=== PATIENT | male | born 1965 | race African-American/Black ===

== ENCOUNTER 2019-08-03 13:18 | Inpatient (IN) | payer BC ==
[2019-08-03] VITALS (23 sets, daily range): BP systolic 81–152; BP diastolic 40–94
[~2019-08-03] VITALS: Ht 185.4 cm; Wt 98.5 kg
[2019-08-03 13:41] LABS: HEMATOCRIT 36.8 % (42.0-52.0); MCH 27.8 pg (26.0-34.0); MCHC 32.7 g/dL (28.0-37.0); MCV 85.1 fL (80.0-100.0); PLATELET COUNT 240 thou/uL (150-400); RBC 4.32 mil/uL (4.50-6.00); WBC 17.6 thou/uL (4.0-11.0)
[2019-08-03 13:46] LABS: ANION GAP 14 mmol/L (7-16); BUN 130 mg/dL (7-18); CALCIUM 7.9 mg/dL (8.5-10.1); CHLORIDE 102 mmol/L (98-107); CO2 21 mmol/L (21-32); CREATININE 14.2 mg/dL (0.7-1.3); GLUCOSE 178 mg/dL (74-106); POTASSIUM 4.7 mmol/L (3.5-5.1); SODIUM 137 mmol/L (136-145)
[2019-08-03 13:56] LABS: ALBUMIN 3.2 g/dL (3.4-5.0); SGOT 22 U/L (15-37); SGPT 53 U/L (30-65); TOTAL BILIRUBIN 0.6 mg/dL (<0.1-1.0); TOTAL PROTEIN 6.9 g/dL (6.4-8.2); TROPONIN-I <0.06 ng/mL (<0.06)
[2019-08-03 14:02] LABS: ABSOLUTE NEUTROPHILS 11.6 thou/uL (1.4-8.2); METAMYELOCYTES 3 %; MYELOCYTES 1 %; PLATELET ESTIMATE NORMAL
[2019-08-03 14:03] LABS: ANISOCYTOSIS SLIGHT
[2019-08-03 14:33] LABS: HCO3 16.7 mmol/L (22.0-26.0); PCO2 55.4 mmHg (35.0-45.0); PO2 95.3 mmHg (80.0-100.0); pH 7.098 (7.360-7.450); sO2 94.3 % (92.0-98.0)
[2019-08-03] MEDS ORDERED: BUPROPION XL300 MG PO (15:41)
[2019-08-03] MEDS ORDERED: PROAIR HFA8.5 GM INH (15:41)
[2019-08-03] MEDS ORDERED: NORVASC10 MG PO (15:41)
[2019-08-03] MEDS ORDERED: ROCALTROL0.25 MCG PO (15:42)
[2019-08-03] MEDS ORDERED: LASIX 40 MG TAB40 MG PO (15:42)
[2019-08-03] MEDS ORDERED: CLONIDINE HCL0.2 M2 PO (15:42)
[2019-08-03] MEDS ORDERED: RENVELA800 MG PO (15:44)
[2019-08-03] MEDS ORDERED: RENAL-VITE TAB0.8 MG PO (15:44)
[2019-08-03] MEDS ORDERED: TOPROL XL50 MG PO (15:44)
[2019-08-03] MEDS ORDERED: TRAZODONE HCL100 MG PO (15:45)
--- NOTE | 2019-08-03 16:06 | NUR ---
PATIENT'S PROJECT DIRECTOR IS DR. MICHELLE LUCERO ([phone])
--- NOTE | 2019-08-03 20:00 | NUR ---
PT ADMITTED TO ICU AT 1630. INTUBATED AND SEDATED WITH PROPOFOL GTT CURRENTLY PT RECEIVING HEMODIALYSIS LUNGS COARSE BILAT. REMAINS IN SINUS RHYTHM. WILL CONT TO MONITOR
[2019-08-04] VITALS (19 sets, daily range): BP systolic 100–172; BP diastolic 52–92
[2019-08-04 05:12] LABS: BE(vivo) -1.8 mmol/L (-2 to +3); HCO3 22.2 mmol/L (22.0-26.0); PCO2 34.7 mmHg (35.0-45.0); pH 7.424 (7.360-7.450); sO2 96.8 % (92.0-98.0)
--- NOTE | 2019-08-04 06:00 | NUR ---
REMAINS INTUBATED AND SEDATED WITH PROPOFOL GTT AT 40 MCG AND VERSED GTT AT 2 MG. WHEN SEDATION LIGHTENED PT WILL OPEN EYES TO NAME AND ATTEMPT TO WEAKLY FLAG SIGNALER. LUNGS REMAIN COARSE BILAT. FIO2 TITRATED TO 50 %. 550 CC CLEAR ELSA URINE TONIGHT. PERITONEAL DIALYSIS CATH INTACT. PT ALSO HAS A LEFT UPPER ARM FISTULA IN PLACE. 2.5 LITERS TAKEN OFF WITH DIALYSIS LAST EVENING. AGUSTÍN TRAC IN PLACE CO 5.7 CI 2.4 SVV 11 WILL CONT TO MONITOR
[2019-08-04 06:01] LABS: HEMATOCRIT 26.7 % (42.0-52.0); MCH 28.5 pg (26.0-34.0); MCHC 34.5 g/dL (28.0-37.0); MCV 82.7 fL (80.0-100.0); RBC 3.23 mil/uL (4.50-6.00); RDW 14.9 % (10.5-14.5); WBC 8.3 thou/uL (4.0-11.0)
[2019-08-04 06:03] LABS: HEMOGLOBIN 9.2 gm/dL (14.0-18.0)
[2019-08-04 06:15] LABS: CALCIUM 7.1 mg/dL (8.5-10.1); POTASSIUM 4.4 mmol/L (3.5-5.1)
[2019-08-04 06:17] LABS: CREATININE 9.4 mg/dL (0.7-1.3)
[2019-08-04 07:37] LABS: ALBUMIN 2.4 g/dL (3.4-5.0); TOTAL BILIRUBIN 0.7 mg/dL (<0.1-1.0)
--- NOTE | 2019-08-04 09:06 | NUR ---
Assumed care at 0700. See reassessment for details. Sedation was titrated off at 0832. After approximately 15 minutes PT was able to open his eyes to verbal response and follow commands. Sedation was turned on at 0855. PT's systolic pressure became elevated (170s). High fall risk precautions in place. RN will continue to monitor.
--- NOTE | 2019-08-04 15:13 | NUR ---
Rn spoke with family via phone and gave them an update on PT condition. Family verbalized understanding. RN will continue to monitor.
[2019-08-04 23:07] LABS: HEP B SURFACE Ab(ANTI-HBS Non Reactive (()); HEPATITIS B SURFACE AG Negative (Negative)
[2019-08-05] VITALS (26 sets, daily range): BP systolic 114–205; BP diastolic 66–105
[2019-08-05 04:29] LABS: BE(vivo) -6.5 mmol/L (-2 to +3); HCO3 16.5 mmol/L (22.0-26.0); PO2 178.8 mmHg (80.0-100.0); pH 7.449 (7.360-7.450); sO2 99.3 % (92.0-98.0)
[2019-08-05 04:30] LABS: PCO2 24.4 mmHg (35.0-45.0)
[2019-08-05 05:34] LABS: BASOPHILS 0.3 % (0.0-2.0); EOSINOPHILS 1.6 % (0.0-3.0); HEMATOCRIT 24.3 % (42.0-52.0); HEMOGLOBIN 8.2 gm/dL (14.0-18.0); LYMPHOCYTES 6.9 % (24.0-44.0); MCH 28.5 pg (26.0-34.0); MCHC 33.9 g/dL (28.0-37.0); MONOCYTES 9.3 % (1.0-8.0); POLYS 81.9 % (36.0-66.0); RBC 2.89 mil/uL (4.50-6.00); RDW 14.8 % (10.5-14.5); WBC 4.9 thou/uL (4.0-11.0)
[2019-08-05 05:48] LABS: ALBUMIN 2.2 g/dL (3.4-5.0); CALCIUM 8.1 mg/dL (8.5-10.1); POTASSIUM 3.8 mmol/L (3.5-5.1); TOTAL BILIRUBIN 0.8 mg/dL (<0.1-1.0); TOTAL PROTEIN 5.1 g/dL (6.4-8.2)
[2019-08-05 05:49] LABS: CREATININE 10.9 mg/dL (0.7-1.3)
--- NOTE | 2019-08-05 05:55 | HC ---
[facility] [place] [address] CONSULTATION Name: DAVI MCCLURE Room #: 245-P ADM IN M.R.#: [id number] Admission: 08/03/19 Attend Phys: Kemal Stein MD Discharge: Date of : 61 Report #: [id number] THIS REPORT FOR: cc: SIMRAN - Family physician unknown SIMRAN - Family physician unknown Montrell Lin MD ~ CC: Montrell KHALIL unknown DATE OF SERVICE: 08/04/2019 REASON FOR CONSULTATION: Endstage renal disease. REASON FOR PRESENTATION: Shortness of breath. HISTORY OF PRESENT ILLNESS: I am not able to obtain the history. The patient is currently intubated. He was brought by EMS yesterday for shortness of breath and was found to be in pulmonary edema. He had been on hemodialysis; however, he was switched to peritoneal dialysis. There seems to be some issues with compliance. He goes to the [facility] unit, which I do not practice in. He was intubated and was admitted to the Intensive Care Unit after being found to have severe metabolic acidosis with very significant elevated blood pressure on presentation, acute pulmonary edema. Nephrology was asked to assist with the management of his dialysis. He has a functioning left-sided AV fistula. The patient tolerated dialysis without any problems yesterday. PAST MEDICAL HISTORY: 1. End-stage renal disease. 2. Left AV fistula. 3. PD catheter. 4. Currently maintained on peritoneal dialysis. However, he was on hemodialysis a few months ago. MEDICATIONS: 1. Lasix. 2. Toprol. 3. Amlodipine. REVIEW OF SYSTEMS: Unobtainable given the patient's current mental status. SOCIAL HISTORY: Unobtainable given the patient's current mental status and intubation status. FAMILY HISTORY: Unobtainable given the patient's current mental status and intubation status. [facility] [address] [place] [address] CONSULTATION Name: DAVI MCCLURE Room #: 245-P [facility] IN [facility].#: [id number] Admission: 08/03/19 Attend Phys: Kemal Stein MD Discharge: Date of : 61 Report #: [id number] ALLERGIES: None listed. PHYSICAL EXAMINATION: GENERAL: He is intubated. VITAL SIGNS: Blood pressure is 102/52. HEAD AND NECK: Central lines present. No evidence of jugular venous distention. CHEST: Crackles bilaterally. CARDIOVASCULAR: No rub detected. ABDOMEN: Soft. EXTREMITIES: Lower extremities, no edema. Upper extremities, there is a left-sided AV fistula. SKIN: There is a PD catheter in place in the abdominal area. LABORATORY DATA: Reviewed. Sodium is 136, potassium is 4.4, BUN is 66, creatinine is 9.4. IMAGING STUDIES: Chest x-ray reviewed, still with significant fluid overload. ASSESSMENT AND PLAN: 1. End-stage renal disease. 2. Noncompliance. 3. Pulmonary edema. 4. Arrangement will be made for the patient to have dialysis tomorrow. He already received a dialysis session yesterday. 5. He will need a very aggressive dialysis regimen with aggressive ultrafiltration to attain a better volume control. 6. Back off all of his blood pressure medication. 7. We will continue to follow. <ELECTRONICALLY SIGNED> By: Montrell Lin MD 08/05/19 0555 0914 1617 Montrell Lin MD /nt
--- NOTE | 2019-08-05 06:00 | NUR ---
REMAINS INTUBATED and sedated with PROPOFOL At 50 mcg and versed gtt 2 mg pt AROSES EASILY WITH SEDATion vacation looseleaf binder coverer to command. lungs coarse bilat 800 cc uo this shift. remAINS IN SINUS RHYTHM. WILL Have dialysis today progressing toward goals/ will cont to monitor
[2019-08-05 06:22] LABS: PLATELET COUNT 83 thou/uL (150-400)
[2019-08-05 06:23] LABS: ANISOCYTOSIS 1+
--- NOTE | 2019-08-05 07:30 | NUR ---
ASSUMED PATIENT AT 0700. FIO2 DECREASED TO 40% AND PEEP TO 5 CM ABG SHOWED PO2 IN THE 170'S. O2 SAT REMANINS 100%. MONITOR SHOWING SR WITH PAC'S AND PVC'S, AND INTERMITTENT SHORT BURST OF AFIB.
--- NOTE | 2019-08-05 08:00 | EKG ---
[facility] [place] [address] ELECTROCARDIOGRAM REPORT Name: GONZALESDAVI KEMP Room #: 245- ADM IN M.R.#: [id number] Admission: 08/03/19 Attend Phys: Kemal Stein MD Discharge: Date of : 61 Report #: [id number] THIS REPORT FOR: cc: FAM - Family physician unknown FAM - Family physician unknown Shamar Belle MD 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 : 1965 Requested By: Robert Ballesteros Order Number: [id number] MD: Shamar Belle Measurements Intervals [place] Rate: 97 P: 44 [place]: 208 QRS: -76 QRSD: 140 T: 79 QT: 376 QTc: 478 Interpretive Statements Sinus rhythm Prolonged [place] interval Left atrial enlargement Right bundle branch block Inferior myocardial infarction, age indeterminate Borderline prolonged QT interval No previous ECG available for comparison Electronically Signed On 08-05-2019 7:58:16 CDT by Shamar Belle [email or web address] <ELECTRONICALLY SIGNED> By: Shamar Belle MD, [facility] 08/05/19 0758 1328 1328 Shamar Belle MD, [facility] /EPI
--- NOTE | 2019-08-05 08:33 | NUR ---
If remains intubated, recommend start enteral nutrition of Nepro at 30ml/hr. Will continue to follow for final goal rate if initiated.
--- NOTE | 2019-08-05 09:53 | NUR ---
JUST SPOKE WITH HIS SIGNIFIANT OTHER, RADHA ROLLE AND UPDATED HER TO HIS STATUS AND PLAN OF CARE, REASSURANCE GIVEN.
--- NOTE | 2019-08-05 10:40 | NUR ---
SPOKE WITH DR BENNETT CONCERNING PATIENT'S MONITOR SHOWING SHORT RUNS OF AFIB WITH VENT RESPONSE UP TO 110 TO 120 AND PATIENT HAVING JERKING TREMORS OF UPPER BODY.
--- NOTE | 2019-08-05 15:04 | NUR ---
ASSUMED CARE OF PATIENT AT 14:31. PATIENT COMPLETED DIALYSIS WITH 4L REMOVED. REMAINS INTUBATED ON VENTILATOR. ET SECURED IN PLACE, TUBING CHANGED BY RT. HARP SECURED AND PATENT, OUTPUT CHARTED. PRIOR NURSE SPOKE WITH FAMILY THIS SHIFT. FALL PRECAUTIONS IN PLACE.
[2019-08-05 15:37] LABS: CALCIUM 8.6 mg/dL (8.5-10.1); POTASSIUM 3.6 mmol/L (3.5-5.1)
[2019-08-05 15:44] LABS: CREATININE 6.6 mg/dL (0.7-1.3)
--- NOTE | 2019-08-05 16:38 | NUR ---
INITIAL ASSESSMENT: SW reviewed chart and spoke with attending physician. Pt was admitted from home due to acute pulmonary eduma. Pt with hx of ESRD and does peritoneal dialysis at home. Pt is currently on the ventilator and in ICU. SW spoke with pt's s/o, Odessa, via phone. Introduced role of SW. Pt is normally alert/orientated x 4. Prior to admission, pt was independent with ADLs. No use of DME or post acute placement. Pt's PCP is Dr. Bruno at [facility]. Plan is for pt to discharge home when medically stable. Thearpy evals to be ordered when pt is able to participate. SW is following to assist a needed with discharge planning.
[2019-08-06] VITALS (7 sets, daily range): BP systolic 123–194; BP diastolic 71–100
[2019-08-06 04:13] LABS: BE(vivo) -1.5 mmol/L (-2 to +3); HCO3 22.9 mmol/L (22.0-26.0); PCO2 37.4 mmHg (35.0-45.0); PO2 131.7 mmHg (80.0-100.0); pH 7.405 (7.360-7.450); sO2 98.7 % (92.0-98.0)
[2019-08-06 05:34] LABS: CALCIUM 8.2 mg/dL (8.5-10.1); POTASSIUM 3.7 mmol/L (3.5-5.1)
[2019-08-06 05:52] LABS: CREATININE 8.5 mg/dL (0.7-1.3)
--- NOTE | 2019-08-06 06:39 | NUR ---
Received report from offgoing RN and assumed patient care. Patient remains on the ventilator with Propofol and Versed infusing for sedation. Sedation vacation for 10 minutes was done and patient did not open his eyes nor follow any commands. Patient's BP gilberto at times to SBP >200. No other acute events occured during this shift.
--- NOTE | 2019-08-06 08:54 | NUR ---
ASSESMENTS AND INTERVENTIONS DOCCUMENTED. DIALYSIS STARTED AROUND 0800. PATIENT HYPERTENSIVE, DR. SABRINA ALFARO. WAITING SENIOR SALES MANAGER BACK.
--- NOTE | 2019-08-06 16:35 | NUR ---
SW reviewed chart and spoke with attending physician. Pt remains on the ventilator at this time. Pt received dialysis today. Plan for extubation soon. Pt will need therapy evals when able to participate. KINGA is following to assist as needed with discharge planning.
[2019-08-07] VITALS (8 sets, daily range): BP systolic 92–149; BP diastolic 60–91
[2019-08-07 05:25] LABS: HEMATOCRIT 29.2 % (42.0-52.0); HEMOGLOBIN 9.6 gm/dL (14.0-18.0); MCH 27.8 pg (26.0-34.0); MCHC 32.8 g/dL (28.0-37.0); MCV 84.5 fL (80.0-100.0); RBC 3.46 mil/uL (4.50-6.00); RDW 14.9 % (10.5-14.5); WBC 15.5 thou/uL (4.0-11.0)
[2019-08-07 05:33] LABS: CALCIUM 8.8 mg/dL (8.5-10.1); CREATININE 7.9 mg/dL (0.7-1.3); POTASSIUM 3.6 mmol/L (3.5-5.1)
--- NOTE | 2019-08-07 06:25 | NUR ---
Received report from offgoing RN and assumed patient care. Patient remains on the ventilator with Propofol infusing for sedation. Patient followed commands during this shift. Patient stopped making urine and Dr. Lin was notified. Total output for shift was 15 mls. Additionally, patient had a low-grade fever and was treated with Tylenol twice. No other acute events occurred during this shift.
--- NOTE | 2019-08-07 08:26 | NUR ---
Starting day 4 npo status. If not able to exubate, recommend start enteral nutrition Nepro at 30ml/hr
--- NOTE | 2019-08-07 09:47 | NUR ---
ASSUMED CARE AT 0700, ASSESSMENT AND VITAL SIGNS COMPLETED PER ICU PROTOCOL. DIALYSIS IN PLACE. DR. ADKINS ROUNDED THIS AM.
--- NOTE | 2019-08-07 16:33 | NUR ---
SW reviewed chart and spoke with nursing and attending physician. Pt had dialysis earlier today. Pt remains on the ventilator. Plan to start cpap trials today and hope to extubate. Pt may benefit from therapy evals when able to participate. Pt lives at home with his s/o, Odessa. KINGA is following to assist as needed with discharge planning.
[2019-08-07 16:58] LABS: BE(vivo) 4.1 mmol/L (-2 to +3); HCO3 28.1 mmol/L (22.0-26.0); PO2 164.2 mmHg (80.0-100.0); pH 7.465 (7.360-7.450); sO2 99.2 % (92.0-98.0)
[2019-08-08] VITALS (39 sets, daily range): BP systolic 117–188; BP diastolic 70–101
[2019-08-08 05:42] LABS: HEMATOCRIT 29.9 % (42.0-52.0); HEMOGLOBIN 9.8 gm/dL (14.0-18.0); MCH 27.7 pg (26.0-34.0); MCHC 32.7 g/dL (28.0-37.0); MCV 84.7 fL (80.0-100.0); RBC 3.53 mil/uL (4.50-6.00); RDW 14.8 % (10.5-14.5); WBC 12.2 thou/uL (4.0-11.0)
[2019-08-08 06:13] LABS: CALCIUM 9.5 mg/dL (8.5-10.1); POTASSIUM 3.7 mmol/L (3.5-5.1)
[2019-08-08 06:17] LABS: CREATININE 6.8 mg/dL (0.7-1.3)
--- NOTE | 2019-08-08 06:41 | NUR ---
Received report from offgoing RN and assumed patient care. Patient remains on the ventilator with Propofol infusing for sedation. Patient had 5 hours of CPAP trial today and did well. Patient noted to still have copious malodorous oral secretions but no further edema is present. Patient VS remained stable, however, patient did have a low-grade fever throughout the night and was given Tylenol.
--- NOTE | 2019-08-08 09:28 | NUR ---
DR BULLOCK ROUNDED ON PT AT 0900, NO NEW ORDERS/NO PLANS FOR HD.
--- NOTE | 2019-08-08 12:07 | NUR ---
ON-GOING ASSESSMENT: CM REVIEWED CHART AND SPOKE WITH ATTENDING. PTS REMAINS ON THE VENTILATOR AND PLANS TO HOPEFULLY WEAN OFF TODAY. PT LIVES AT HOME WITH SIGNIFICANT OTHER AND WILL NEED TO BE EVALUATED BY PT/OT ONCE HE IS ABLE TO PARTICIPATE. CM WILL CONTINUE TO FOLLOW TO ASSIST NEEDED.
--- NOTE | 2019-08-08 12:10 | NUR ---
ON-GOING ASSESSMENT: CM REVIEWED CHART AND SPOKE WITH ATTENDING. PT REMAINS ON THE VENTILATOR WITH PLANS TO CONTINUE TRIALS WITH HOPE TO EXTUBATE SOON. ONCE PT IS ABLE HE MAY NEED TO BE EVALUATED BY PT/OT. PT IS BEING TESTED TODAY FOR COVID 19. CM WILL CONTINUE TO FOLLOW TO ASSIST NEEDED.
[2019-08-09] VITALS (18 sets, daily range): BP systolic 103–186; BP diastolic 73–101
--- NOTE | 2019-08-09 00:48 | NUR ---
ASSUMED CARE OF PATIENT AT 1900. ADMISSION HISTORY AND MED REC COMPLETE WITH INFORMATION PROVIDED BY DAUGHTER DANIEL VIA PHONE. DR HORTA, DR DUFFY CONSULTED. ORDERS RECIEVED FROM KO TO MOVE TO POD 1. DR ADKINS CONSULTED DUE TO CRITICAL LABS. ORDERS RECIEVED, INFORMATION PASSED ON TO RN ASSUMING CARE AFTER MOVE. DAUGHTER UPDATED ABOUT MOVE, WAS ABLE TO SPEAK WITH DR HORTA. COVID NEGATIVE RESULTS CALLED TO YVETTE LORENZO, NEUROSURGERY PHYSICIAN, AND CHARGE. PATIENT MOVED TO ROOM 238 AT 0030. REPORT GIVEN. POC GOALS ESTABLISHED.
[2019-08-09 05:32] LABS: HEMATOCRIT 28.6 % (42.0-52.0); HEMOGLOBIN 9.5 gm/dL (14.0-18.0); MCH 27.8 pg (26.0-34.0); MCHC 33.1 g/dL (28.0-37.0); MCV 83.9 fL (80.0-100.0); RBC 3.4 mil/uL (4.50-6.00); WBC 10.1 thou/uL (4.0-11.0)
[2019-08-09 05:39] LABS: POTASSIUM 4.1 mmol/L (3.5-5.1)
[2019-08-09 05:54] LABS: CREATININE 9.6 mg/dL (0.7-1.3)
--- NOTE | 2019-08-09 06:28 | NUR ---
ASSUMED CARE OF PATIENT AT 1900. 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 AT 2200 BECAME UNCONTROLLABLY AGITATED AND RESTLESS, KICKING LEGS OUT OF BED, ATTEMPTING TO PULL ET TUBE OUT. VERSED HUNG, 1 ADDITIONAL DOSE OF FENTYNAL GIVEN. PATIENT ABLE TO RELAX AND CALM DOWN. AWAKENS EASILY AND ABLE TO ANSWER YES/NO QUESTIONS. ONE RUN OF SVT, METOPROLOL GIVEN ORDERED. HEART RATE NOW WITHIN NORMAL LIMITS. INITIAL COVID TEST NEGATIVE, ROAD ROLLER ENGINEER, YVETTE LORENZO AND CHARGE NURSE NOTIFIED. REMAINS IN ENHANCED PRECAUTIONS, REPEAT COVID TEST SENT THIS AM. URINE OUTPUT STILL REMAINS INADEQUATE, DIALYSIS ORDERED FOR TODAY. NOT PROGRESSING TOWARDS GOALS.
--- NOTE | 2019-08-09 08:30 | NUR ---
ASSUMED CARE FROM NIGHT NURSE JOSE AT 0700. PATIENT SEDATED WITH FENTANYL AND VERSED BUT EASILY AROUSES AND FOLLOWS SIMPLE COMMANDS. MONITOR SHOWING NSR WITH 1ST DEGREE AV BLOCK AND BBB WITH OCC PAC AND PVC'S NOTED. BLOOD PRESSURE INCREASES WITH SUCTIONING. LARGE AMT OF THICK YELLOW DRAINAGE FROM LEFT NARE NOTED. TOLERATING TUBE FEEDING RESIDUAL IS LESS THAN 10 ML. FEEDING LINE FLUSHED WITH WARM WATER. ONLY 10 ML OF URINE IN RESPONSE TO LASIX. HEMODILYSIS IN PROGRESS.
--- NOTE | 2019-08-09 11:16 | NUR ---
Nutrition: Tube feeds started. RD rec goal rate nepro 55 mL/hr to meet needs.
--- NOTE | 2019-08-09 13:33 | NUR ---
DIALYSIS COMPLETED, SIGNIFICANT OTHER, RADHA CALLED AT 1220 AND UPDATED TO THE PATIENT'S STATUS AND POC. AWAITING COVID 19 RESULT, LAB CONTACTED.
--- NOTE | 2019-08-09 15:22 | NUR ---
SW reviewed chart and spoke with attending physician. Pt remains intubated. Pt had dialysis earlier today and has started tube feedings. Repeat COVID-19 test ordered today. No weekend discharge planned. Pt will need therapy evals ordered when able to participate. KINGA is following to assist as needed with discharge planning.
--- NOTE | 2019-08-09 16:30 | NUR ---
PATIENT NOTED TO HAVE ELEVATED RESIDUAL AT 1430 OF 70 ML, TUBE FEEDING REMAINS OFF. DUCOLAX SUPP GIVEN PATIENT HAS NOT HAD ANY STOOLS SINCE ARRIVAL TO ICU. AT 1600 PATIENT'S MONITOR SHOWING SVT, METOPOROL GIVEN AND BEDSIDE EKG DONE AND PATIENT CONVERTED BACK TO ST WITH PAC'S, 1ST DEGREE BLOCK AND BBB. PATIENT WAS ALERT, COPIOUS AMT OF ORAL AND ETT SECRETIONS SUCTIONED. DR BENNETT NOTIFIED OF RHYTHM, TUBE FEEDING RESIDUALS, AND PRN ORDER FOR FLUIDS FOR LOW BLOOD SUGAR. ORDERS RECEIVED. BEDSIDE EKG DONE.
--- NOTE | 2019-08-09 19:15 | NUR ---
PATIENT NOTED TO HAVE SECOND COVID 19 NEGATIVE RESULT, TEMP OF 101.[address] BENNETT NOTIFIED AT 1735, ORDERS RECEIVED. ID CONSULTED AND SPOKE WITH DR MIRELES AT 1745, ORDERS RECEIVED. TYLENOL GIVEN PER OG TUBE, ZOSYN AND VANCOMYCIN HUNG PER ORDER. SPUTUM AND BLOOD CULTURES DRAWN 08/07, RESULTS PENDING. WILL CONTINUE TO MONITOR. PATIENT SLOWLY PROGRESSING TOWARDS OUTCOME GOALS.
[2019-08-10] VITALS (24 sets, daily range): BP systolic 86–212; BP diastolic 54–116
[2019-08-10 00:39] LABS: CALCIUM 9.6 mg/dL (8.5-10.1); CREATININE 7.2 mg/dL (0.7-1.3); POTASSIUM 4.4 mmol/L (3.5-5.1)
--- NOTE | 2019-08-10 04:09 | NUR ---
PATIENT ON CONTINUOUS LATERAL ROTATION, TOLERATING WELL. ABLE TO MAINTAIN RASS GOAL OF -1. NO URINE OUTPUT THIS SHIFT. LABS NOTED. NO ACUTE EVENTS OVERNIGHT.
[2019-08-10 04:18] LABS: HEMATOCRIT 29.6 % (42.0-52.0); MCH 28.4 pg (26.0-34.0); MCHC 33.8 g/dL (28.0-37.0); MCV 84.1 fL (80.0-100.0); RBC 3.52 mil/uL (4.50-6.00); RDW 14.9 % (10.5-14.5); WBC 9.1 thou/uL (4.0-11.0)
[2019-08-10 08:10] LABS: DIRECT BILIRUBIN 1.1 mg/dL (<0.1-0.2); TOTAL BILIRUBIN 1.5 mg/dL (<0.1-1.0); TOTAL PROTEIN 7.2 g/dL (6.4-8.2)
[2019-08-10 10:17] LABS: CHOLESTEROL 141 mg/dL (<200); HDL CHOLESTEROL 11 mg/dL (>40); MAGNESIUM 2.5 mg/dL (1.8-2.4); PHOSPHORUS 6.5 mg/dL (2.5-4.9); TC:HDL 12.8 Ratio (Not establshd); TRIGLYCERIDE 418 mg/dL (<150); VLDL 84 mg/dL (<40)
--- NOTE | 2019-08-10 10:59 | EKG ---
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 : 1965 Requested By: Kemal Stein Order Number: [id number] MD: Jose Braxton Measurements Intervals [place] Rate: 105 P: 42 OR: 187 QRS: -65 QRSD: 136 T: 37 QT: 340 QTc: 450 Interpretive Statements Sinus tachycardia Atrial premature complex Right bundle branch block Probable inferior infarct, recent Baseline wander in lead(s) V2 Compared to ECG 08/03/2019 13:28:36 Atrial premature complex(es) now present Sinus rhythm no longer present First degree AV block no longer present Atrial abnormality no longer present Myocardial infarct finding still present Electronically Signed On 08-10-2019 10:57:52 CDT by Jose Braxton [email or web address] <ELECTRONICALLY SIGNED> By: Jose Braxton MD 08/10/19 1057 1634 1634 Jose Braxton MD /EPI
--- NOTE | 2019-08-10 19:34 | NUR ---
assumed care of pt at 0700, pt is a gcs of 11. pt does not seem to be in any pain. HD done today and pt tolerated it. pt has been afibrile. vss. pt resting with eyes closed currently.
[2019-08-11] VITALS (67 sets, daily range): BP systolic 82–152; BP diastolic 45–98
[2019-08-11 04:22] LABS: HEMATOCRIT 29.2 % (42.0-52.0); HEMOGLOBIN 9.5 gm/dL (14.0-18.0); MCH 27.6 pg (26.0-34.0); MCHC 32.5 g/dL (28.0-37.0); PLATELET COUNT 215 thou/uL (150-400); RBC 3.44 mil/uL (4.50-6.00); RDW 15.2 % (10.5-14.5); WBC 15.7 thou/uL (4.0-11.0)
[2019-08-11 04:37] LABS: ALBUMIN 1.9 g/dL (3.4-5.0); MAGNESIUM 2.7 mg/dL (1.8-2.4); POTASSIUM 5.8 mmol/L (3.5-5.1); TOTAL BILIRUBIN 2.7 mg/dL (<0.1-1.0); TOTAL PROTEIN 7.6 g/dL (6.4-8.2)
[2019-08-11 05:13] LABS: ABSOLUTE NEUTROPHILS 14.4 thou/uL (1.4-8.2); METAMYELOCYTES 1 %; TOXIC GRANULATION SLIGHT
--- NOTE | 2019-08-11 05:40 | HC ---
[facility] [place] [address] CONSULTATION Name: DAVI MCCLURE Room #: 245-P ADM IN M.R.#: [id number] Admission: 08/03/19 Attend Phys: Kemal Stein MD Discharge: Date of : 61 Report #: [id number] THIS REPORT FOR: cc: SIMRAN - Family physician unknown SIMRAN - Family physician unknown Zeus Raymond MD ~ CC: Montrell Stein [facility] unknown DATE OF SERVICE: 08/10/2019 INFECTIOUS DISEASE CONSULTATION ATTENDING PHYSICIAN: Dr. Stein. REASON FOR EVALUATION: Nosocomial fevers. The patient is critically ill, on mechanical ventilatory support, also noted to have longstanding dialysis. HISTORY OF PRESENT ILLNESS: Chart reviewed, patient examined. This is a 53-year-old gentleman with end-stage renal disease, on dialysis, had been doing peritoneal dialysis until recently, who was admitted through the Emergency Room after being brought in with severe shortness of breath, was urgently intubated. He has been on mechanical ventilatory support since that time. Over the course of the last 48 hours, he is noted to be febrile. Evaluation thus far has been somewhat unrevealing. He has been undergoing hemodialysis. Recent blood cultures from the are sterile thus far. Sputum culture showed upper respiratory tract marquez. He makes no urine. It was notable he has not had bowel movement since he has been here. He is intolerant of enteral feedings. It is notable he has had a coronavirus screening x 2 that were negative and empirically started on piperacillin and tazobactam given a dose of vancomycin. ALLERGIES: None. CURRENT MEDICATIONS: Include Zosyn, metoclopramide, labetalol, metoprolol as needed, insulin, p.r.n. analgesics and antiemetics. PAST MEDICAL HISTORY: Notable for hypertension, has got end-stage renal disease, on dialysis, until recently has been on peritoneal dialysis, at hospitalization has been on hemodialysis, does have a left upper extremity fistula. SOCIAL HISTORY: Unavailable. FAMILY HISTORY: Noncontributory. [facility] [address] [place] [address] CONSULTATION Name: ROSALINDSAULDAVI Room #: 245-P ADM IN M.R.#: [id number] Admission: 08/03/19 Attend Phys: Kemal Stein MD Discharge: Date of : 61 Report #: [id number] REVIEW OF SYSTEMS: Not obtainable. PHYSICAL EXAMINATION: GENERAL: Appears reasonably well nourished. He is sedated on the vent, appears somewhat chronically ill. VITAL SIGNS: Temperature overnight max 100.3, last 24 hours as high as 101.8. Pulse 90, respirations 14, blood pressure is 119/79 and saturations 98% on FiO2 ____. HEENT: He has got ET, OG in place. LUNGS: Few scattered coarse breath sounds, diminished. HEART: Regular. Borderline tachycardic. I do not appreciate murmur. ABDOMEN: Appears to be soft. There is some mild distention. I do not appreciate any peritoneal signs. GENITOURINARY AND RECTAL: Deferred. LABORATORY DATA: White count from this morning 9.1, H and H 10.0 and 29.6, platelets 162. Electrolytes: Sodium 135, potassium 4.4, chloride 96, bicarbonate is 29, anion gap of 10, BUN and creatinine 47 and 7.2. Glucose of 103. Coronavirus testing x 2 negative. Sputum culture, Gram stain showed polymicrobial appearance, moderate mixed respiratory tract marquez. Blood cultures are sterile thus far. ASSESSMENT AND PLAN: Nosocomial fevers in the setting of a patient that is critically ill. He is on mechanical ventilatory support for the last week. At this point, it is not evident there is a focus pyogenic infection at this point. Overall, the pulmonary status appears fairly stable. There is no evidence of septicemia at this point, although cannot exclude it. We will continue empiric antimicrobial therapy. It would be somewhat concerned about intra-abdominal related process. Check ultrasound of the abdomen. Repeat the liver function tests as well as amylase and lipase, also be a risk for sinus related infection as well. Consider noninfectious etiologies including drug, fevers, etc. We will follow. <ELECTRONICALLY SIGNED> By: Zeus Raymond MD 08/11/19 0540 0719 0738 Zeus Raymond MD /nt
[2019-08-11 06:34] LABS: INR 1.2; PROTIME 12.3 Seconds (9.3-11.4)
--- NOTE | 2019-08-11 08:29 | NUR ---
Assessment and interventions documented. Pt restless but redirectable. No complaints. No adverse events throughout the night. Pt stable hyponatremia resolving. Pt progressing toward goals.
--- NOTE | 2019-08-11 10:29 | NUR ---
Assumed care at 0700. Versed and fentanyl gtts were shut off for sedation vacation. PT rouses to pain but does not open his eyes or follow commands. Gag reflex intact. RN spoke with Dr. Ahumada as PT's BP was 84-86 systolic with a MAP<65. Provider ordered a 250cc bolus and levophed gtt. RN administered the bolus with improvement of BP and MAP. Levophed is ready as PRN blood pressure support. RN spoke with RT who initiated a CPAP trial at 0800. PT is tolerating trial well thus far but still not following commands. Fall precautions are in place. RN will continue to monitor.
--- NOTE | 2019-08-11 13:57 | NUR ---
RN noted PT's blood pressure was running 80s systolic with MAP <65. RN initiated levophed gtt that was ordered PRN at 1 mcg/min. RN titrated up to 3 mcg/min with improvment in pressures noted. Dr. Johnson rounded at bedside and was updated of PT condition. See chart for vital sign record. Fall precautions in place. RN will continue to monitor.
--- NOTE | 2019-08-11 14:26 | NUR ---
RN spoke with Dr. Raymond and updated him of covid 19 negative results. This has been the PT's third covid test and all 3 have been reported negative. Provider stated it was okay to d/c precautions at this time. RN will continue to monitor.
--- NOTE | 2019-08-11 15:38 | NUR ---
PT had a sustained run of sinus tachycardia (170s-180s). RN suctioned PT to induce a vagel manuever which was unsuccessful. Labetolol IVP 10mg was given with improvement. HR now 80s-90s. Dr. Ahumada notified per donaldorptos text. RN will continue to monitor.
[2019-08-11 16:35] LABS: ABSOLUTE NEUTROPHILS 14.9 thou/uL (1.4-8.2); BASOPHILS 0.6 % (0.0-2.0); EOSINOPHILS 0.4 % (0.0-3.0); HEMATOCRIT 28.4 % (42.0-52.0); HEMOGLOBIN 9.4 gm/dL (14.0-18.0); LYMPHOCYTES 4.2 % (24.0-44.0); MCH 27.8 pg (26.0-34.0); MCHC 33.1 g/dL (28.0-37.0); MCV 83.9 fL (80.0-100.0); MONOCYTES 10.5 % (1.0-8.0); PLATELET COUNT 254 thou/uL (150-400); POLYS 84.3 % (36.0-66.0); RBC 3.38 mil/uL (4.50-6.00); RDW 15.2 % (10.5-14.5); WBC 17.7 thou/uL (4.0-11.0)
[2019-08-11 16:57] LABS: ANION GAP 16 mmol/L (7-16); BUN 98 mg/dL (7-18); CALCIUM 10.3 mg/dL (8.5-10.1); CHLORIDE 96 mmol/L (98-107); CO2 24 mmol/L (21-32); GLUCOSE 111 mg/dL (74-106); POTASSIUM 5.1 mmol/L (3.5-5.1); SODIUM 136 mmol/L (136-145); TROPONIN-I <0.06 ng/mL (<0.06)
[2019-08-11 17:00] LABS: CREATININE 11.2 mg/dL (0.7-1.3)
[2019-08-12] VITALS (84 sets, daily range): BP systolic 81–151; BP diastolic 45–98
--- NOTE | 2019-08-12 03:00 | NUR ---
ASSUMED CARE OF PT
--- NOTE | 2019-08-12 06:00 | NUR ---
REMAINS INTUBATED AND SEDATED WITH FENTANYL 25 MCG ANBD VERSED 2 MG PER HR, SINUS RHYTHM. AFEBRILE HAD 2 LARGE BROWN LIQUID STOOL THIS SHIFT. LEVO GTT HAS REMAINS OFF ALL SHIFT. 5 CC UO THIS SHIFT. WILL CONT TO MONITOR. BATHED EARLIER.
[2019-08-12 06:11] LABS: BASOPHILS 0.6 % (0.0-2.0); HEMATOCRIT 26.3 % (42.0-52.0); HEMOGLOBIN 8.7 gm/dL (14.0-18.0); LYMPHOCYTES 3.6 % (24.0-44.0); MCH 27.7 pg (26.0-34.0); MCHC 33.2 g/dL (28.0-37.0); MCV 83.6 fL (80.0-100.0); MONOCYTES 9.2 % (1.0-8.0); PLATELET COUNT 252 thou/uL (150-400); POLYS 85.6 % (36.0-66.0); RBC 3.14 mil/uL (4.50-6.00); RDW 15.1 % (10.5-14.5); WBC 15.1 thou/uL (4.0-11.0)
[2019-08-12 06:42] LABS: ALBUMIN 1.8 g/dL (3.4-5.0); CALCIUM 9.8 mg/dL (8.5-10.1); MAGNESIUM 3.2 mg/dL (1.8-2.4); POTASSIUM 5.1 mmol/L (3.5-5.1); TOTAL BILIRUBIN 2.3 mg/dL (<0.1-1.0); TOTAL PROTEIN 7.4 g/dL (6.4-8.2)
[2019-08-12 06:46] LABS: CREATININE 12.6 mg/dL (0.7-1.3)
--- NOTE | 2019-08-12 09:22 | NUR ---
RN assumed care at 0700. PT is sedated on vent with fentanyl and versed gtts running. RN shut off gtts at 0915 for CPAP trial and sedation vacation. PT grimaces to suction and tactile stimulation but does not follow commands at this time. PT was noted to have a small liquid brown BM this AM. PT was cleaned and repositioned. High fall risk precautions in place. RN will continue to monitor.
[2019-08-12 10:40] LABS: BE(vivo) -6.8 mmol/L (-2 to +3); HCO3 19.2 mmol/L (22.0-26.0); PCO2 40.2 mmHg (35.0-45.0); pH 7.297 (7.360-7.450); sO2 98.3 % (92.0-98.0)
--- NOTE | 2019-08-12 11:02 | NUR ---
PT tolerated CPAP trial well. ABG had critical low pH. Result was called to Dr. Johnson who stated we would try and extubate tomorrow since PT is scheduled to undergo dialysis today. RN verbalized understanding. Will continue to monitor.
--- NOTE | 2019-08-12 14:27 | EKG ---
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 : 1965 Requested By: Charis Ahumada Order Number: [id number] MD: Jose Braxton Measurements Intervals [place] Rate: 92 P: 22 FL: 197 QRS: -60 QRSD: 136 T: 66 QT: 368 QTc: 456 Interpretive Statements Sinus rhythm Ventricular premature complex Borderline prolonged FL interval Right bundle branch block Inferior infarct, old Lateral leads are also involved Compared to ECG 08/09/2019 16:34:32 Atrial premature complex(es) no longer present Myocardial infarct finding still present Electronically Signed On 08-12-2019 14:25:11 CDT by Jose Braxton [email or web address] <ELECTRONICALLY SIGNED> By: Jose Braxton MD 08/12/19 1425 1606 1606 Jose Braxton MD /EPI
--- NOTE | 2019-08-12 15:27 | NUR ---
PT had a rhythm change at 1455. PT appeared to be in bigeminy that turned into SVT. Heart rate reached 180-190s. RN inititated the coughling relfex and gave Lopressor IVP 10mg. PT responded to the medication. HR slowed to the 80-90s however appeared to be in bigeminy until 1501. A stat EKG was ordered and Dr. Braxton notified. Dr. Braxton ordered a troponin, TSH, and 50 mg of Metoprolol XL via OGT daily. RN verbalized understanding. Will continue to monitor.
--- NOTE | 2019-08-12 16:57 | NUR ---
PT had a rhythm change at 1455. PT appeared to be in bigeminy that transitioned into SVT. Heart rate noted at 180-190s. RN initiated coughing reflex and gave 10mg of IVP Lopressor. Heart rate improved and went down to the 80-90s however PT still appeared to be in bigeminy until 1501. A stat EKG was ordered and Dr. Braxton was paged. Provider ordered a troponin, TSH, and metoprolol 50 BID via OGT. RN verbalized understanding. Will continue to monitor.
--- NOTE | 2019-08-12 18:21 | NUR ---
PT not progressing towards goals. His cardiac rhythm has changed showing more frequent PVC's, at times bigeminy, and had a run of SVT. PT's blood glucose was low at 1800 at 70. Dextrose given with last glucose at 113. PT did tolerate the CPAP trial well today. PT underwent dialysis today and they took off 1L of fluid. RN spoke with Dr. Ahumada at the end of shift to notify her that the PT went into SVT again and his heart rhythm has been irregular. RN told provider that Dr. Braxton has also been updated. She verbalized understanding. No new orders at this time. High fall risk precautions in place. RN will continue to monitor.
[2019-08-13] VITALS (76 sets, daily range): BP systolic 83–193; BP diastolic 50–119
[2019-08-13 05:23] LABS: CALCIUM 9.7 mg/dL (8.5-10.1); POTASSIUM 4.2 mmol/L (3.5-5.1)
[2019-08-13 06:07] LABS: CREATININE 8.7 mg/dL (0.7-1.3)
--- NOTE | 2019-08-13 06:12 | NUR ---
Received report from offgoing RN and assumed patient care. Patient remains on the ventilator with Fentanyl and Versed infusing for sedation. Patient did not follow any commands during or after the sedation vacation, but did eventually open his eyes. Patient is noted to have ST with very frequent PVC's resulting in bigeminy and trigeminy. Patient also was febrile with temperature greater than 101. Patient given Tylenol and ice packs and cool wash cloths placed around patient. Patient BP dropped to 80's systolic and Levophed was restarted to maintain a MAP >60. No other acute events occurred during this shift. The plan is for patient to be extubated today since he will not be getting hemodialysis.
--- NOTE | 2019-08-13 08:02 | EKG ---
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 : 1965 Requested By: Jose Braxton Order Number: [id number] MD: Shamar Belle Measurements Intervals [place] Rate: 88 P: 41 [place]: 185 QRS: -21 QRSD: 149 T: 84 QT: 392 QTc: 475 Interpretive Statements Sinus rhythm Right bundle branch block Inferior infarct, old T wave abnormality, consider lateral ischemia Compared to ECG 08/11/2019 16:06:57 Ventricular premature complex(es) no longer present Electronically Signed On 08-13-2019 8:00:34 CDT by Shamar Belle [email or web address] <ELECTRONICALLY SIGNED> By: Shamar Belle MD, [facility] 08/13/1900 15 151 Shamar Belle MD, [facility] /EPI
--- NOTE | 2019-08-13 08:08 | HC ---
[place] [address] CONSULTATION Name: DAVI MCCLURE Room #: 245-P ADM IN M.R.#: [id number] Admission: 08/03/19 Attend Phys: Kemal Stein MD Discharge: Date of : 61 Report #: [id number] THIS REPORT FOR: cc: SIMRAN - Family physician unknown FAM - Family physician unknown Jose Braxton MD ~ CC: Montrell KHALIL unknown DATE OF SERVICE: 08/12/2019 INDICATION: SVT. HISTORY OF PRESENT ILLNESS: This is a 53-year-old gentleman with a history of end-stage renal disease, hypertension, noncompliance, who was admitted more than a week ago with respiratory failure requiring intubation in the ER. It seems that he was on peritoneal dialysis at home and there is a question of noncompliance. Since he has been in the hospital, he has undergone hemodialysis with an improvement in his respiratory status. Yesterday, he had an episode of SVT that was sustained. It resolved with IV labetalol. He also has brief episodes of nonsustained VT. History is obtained from his medical records. ALLERGIES: None. MEDICATIONS: Please see MAR for full listing. SOCIAL HISTORY: Unknown. FAMILY HISTORY: Unknown. REVIEW OF SYSTEMS: Unobtainable. PHYSICAL EXAMINATION: VITAL SIGNS: Blood pressure is 120/60, heart rate is 90 beats per minute. GENERAL APPEARANCE: This is a well-developed, well-nourished male in no acute distress. HEENT: Normocephalic, atraumatic. NECK: Supple. LUNGS: Clear to auscultation. CARDIAC: Regular rate and rhythm, S1, S2 positive. ABDOMEN: Soft, nontender. EXTREMITIES: Trace edema, no cyanosis. ECG reveals sinus rhythm, right bundle branch block, left axis deviation, Q-waves inferiorly. [address] [place] [address] CONSULTATION Name: DAVI MCCLURE Room #: 245-P [facility] IN .R.#: [id number] Admission: 08/03/19 Attend Phys: Kemal Stein MD Discharge: Date of : 61 Report #: [id number] LABORATORY VALUES: White count 15.1, hemoglobin is 8.7, creatinine is 12.6. Troponin is negative from yesterday. ASSESSMENT AND PLAN: 1. Supraventricular tachycardia. He had been on pressure support, which has been weaned off. His blood pressure is on the low side. We would not start him on any standard medications. If he has a recurrence, would use IV metoprolol. We will need an echo. 2. Respiratory failure/fluid overload, continue with dialysis. Wean as per Pulmonary. 3. Hypertension, off pressors. Blood pressure is on the low side. 4. Nonsustained ventricular tachycardia, await echo findings. <ELECTRONICALLY SIGNED> By: Jose Braxton MD 08/13/19 0808 1311 1453 Jose Braxton MD /maurice
--- NOTE | 2019-08-13 09:33 | NUR ---
ASSESSMENTS AND INTERVENTIONS DOCCUMENTED. PATIENT TITRATED OFF OF LEVOPHED AND DOWN ON VERESED AND FENTANYL. PLANS TO CPAP TODAY. PATIENT FOLLOWING COMMANDS. DR. MORENO AT BEDSIDE. ORDERS FOR ECHO PLACED. DR. BENNETT ROUNDING ON PATIENT NO NEW ORDERS AT THIS TIME. ECHO BEING DONE AT BEDSIDE.
--- NOTE | 2019-08-13 10:44 | NUR ---
If not extubated, recommend resume trials of tube feed of nepro at 30ml/hr with new goal of 50ml/hr. TF has been on hold since 08/08 and pt had several days of npo status prior.
[2019-08-13 11:33] LABS: BE(vivo) -1.9 mmol/L (-2 to +3); HCO3 23.3 mmol/L (22.0-26.0); PCO2 41.7 mmHg (35.0-45.0); PO2 114.9 mmHg (80.0-100.0); pH 7.366 (7.360-7.450); sO2 98.1 % (92.0-98.0)
--- NOTE | 2019-08-13 13:15 | 2DMMODE ---
[facility] [place] [address] 2 D/M-MODE ECHOCARDIOGRAM Name: DAVI MCCLURE Room #: 245-P ADM IN M.R.#: [id number] Admission: 08/03/19 Attend Phys: Kemal Stein MD Discharge: Date of : 61 Report #: [id number] THIS REPORT FOR: cc: FAM - Family physician unknown FAM - Family physician unknown Shamar Belle MD [facility] ~ APPROVED REPORT Study performed: 08/13/2019 09:25:51 EXAM: Comprehensive 2D, Doppler, and color-flow Echocardiogram Patient Location: ICU Room #: [facility] Status: routine BSA: 2.19 HR: 96 bpm BP: 120/74 mmHg Other Information Study Quality: Adequate Indications Congestive Heart Failure Dyspnea SVT 2D Dimensions RVDd: 37.94 mm IVSd: 12.31 (7-11mm) LVDd: 51.32 mm PWd: 13.02 (7-11mm) LVDs: 41.79 (25-40mm) Volumes Left Atrial Volume (Systole) Single Plane 4CH: 43.66 mL Single Plane 2CH: 72.48 mL LA ESV Index: 28.00 mL/m2 Aortic Valve AoV Peak Steve.: 1.72 m/s AO Peak Gr.: 11.77 mmHg LVOT Max P.49 mmHg AO Mean Gr.: 5.71 mmHg AO V2 Mean: 1.10 m/s LVOT Max V: 0.93 m/s AO V2 VTI: 23.[address] [facility] [place] [place] [address] 2 D/M-MODE ECHOCARDIOGRAM Name: DAVI MCCLURE Room #: 245-P [facility] IN .R.#: [id number] Admission: 08/03/19 Attend Phys: Kemal Stein MD Discharge: Date of : 61 Report #: [id number] Mitral Valve MV Peak Gr.: 4.09 mmHg MV Mean Gr.: 1.83 mmHg E/A Ratio: 0.9 MV Decel. Time: 196.04 ms MV E Max Steve.: 0.72 m/s MV A Steve.: 0.82 m/s MV Max Steve.: 1.01 m/s MV Mean Steve.: 0.65 m/s MV VTI: 189.33 mm Pulmonary Valve PV Peak Steve.: 0.97 m/s PV Peak Gr.: 3.76 mmHg Tricuspid Valve RAP Estimate: 10.00 mmHg Left Ventricle The left ventricle is normal size. There is normal LV segmental wall motion. Mild concentric left ventricular hypertrophy. The left ventricular systolic function is normal. The left ventricular ejection fraction is within the normal range. LVEF is 55-60%. Mild diastolic dysfunction is present (impaired relaxation pattern). Right Ventricle The right ventricle is normal size. The right ventricular systolic function is normal. Atria The left atrium size is normal. The right atrium size is normal. Aortic Valve The aortic valve is normal in structure. No aortic regurgitation is present. There is no aortic valvular stenosis. Mitral Valve The mitral valve is normal in structure. Trace mitral regurgitation. No evidence of mitral valve stenosis. Tricuspid Valve The tricuspid valve is normal in structure. Trace tricuspid regurgitation. Unable to estimate pulmonary artery pressure. [facility] [address] [place] [address] 2 D/M-MODE ECHOCARDIOGRAM Name: DAVI MCCLURE Room #: 245-P [facility] IN .R.#: [id number] Admission: 08/03/19 Attend Phys: Kemal Stein MD Discharge: Date of : 61 Report #: [id number] Pulmonic Valve Pulmonic valve is not well visualized, normal by Doppler data. Trace pulmonic regurgitation. Great Vessels Aortic root is within upper limits of normal measuring 3.9 cm. Ascending aorta is not well visualized. IVC is dilated and collapses <50% with inspiration. Patient is mechanically ventilated. Pericardium There is no pericardial effusion. <Conclusion> The left ventricular systolic function is normal. There is normal LV segmental wall motion. LVEF is 55-60%. Mild diastolic dysfunction The aortic valve is normal in structure. No aortic regurgitation or stenosis. The mitral valve is normal in structure. Trace mitral regurgitation. Trace tricuspid regurgitation. Unable to estimate pulmonary artery pressure. There is no pericardial effusion. <ELECTRONICALLY SIGNED> By: Shamar Belle MD, [facility] 08/13/19 1313 131 12 Shamar Belle MD, FAC /INF
--- NOTE | 2019-08-13 16:44 | NUR ---
SW reviewed chart and spoke with attending physician. Pt remains in ICU. Cpap trials today. Pt's repeat COVId test is negative. Therapy ordered to evaluate pt when he is able to participate. SW is following to assist as needed [facility] discharge planning.
[2019-08-14] VITALS (60 sets, daily range): BP systolic 70–166; BP diastolic 44–119
--- NOTE | 2019-08-14 05:58 | NUR ---
Received report from offgoing RN and assumed patient care. Patient remains on the ventilator and is without any sedation. Patient is still very drowsy but is following all commands. Patient was tested to see if we could extubate this shift but RT felt he was not ready. Dr. Johnson notified and he said to reassess tomorrow. Patient remained afebrile during this shift and VS remained stable and no acute events occurred during this shift.
[2019-08-14 06:03] LABS: CALCIUM 10.2 mg/dL (8.5-10.1); CREATININE 11.8 mg/dL (0.7-1.3); POTASSIUM 4.3 mmol/L (3.5-5.1)
[2019-08-14 07:27] LABS: HEMATOCRIT 27.3 % (42.0-52.0); MCH 27.9 pg (26.0-34.0); MCHC 33.1 g/dL (28.0-37.0); MCV 84.1 fL (80.0-100.0); RBC 3.24 mil/uL (4.50-6.00); RDW 14.5 % (10.5-14.5); WBC 8.6 thou/uL (4.0-11.0)
--- NOTE | 2019-08-14 09:31 | NUR ---
RN ASSUMED CARE OF PATIENT AT 0800. PATIENT ON DILAYSIS AND ALERT. PATIENT LOOKING UNCOMFORTABLE AND NODDING YES TO BEING IN PAIN. PATIENT HYPERTENSIVE AND TACHYCARDIC. MEDICATION GIVEN AND PATIENT APPEARS MUCH MORE COMFORTABLE AT THIS TIME.
[2019-08-14 13:34] LABS: BE(vivo) -1.4 mmol/L (-2 to +3); HCO3 22.1 mmol/L (22.0-26.0); PCO2 32.9 mmHg (35.0-45.0); pH 7.445 (7.360-7.450); sO2 98.7 % (92.0-98.0)
--- NOTE | 2019-08-14 17:01 | NUR ---
KINGA reviewed chart and spoke with nursing and attending physician. Pt remains in ICU and intubated. Plans for CPAP trials and hopefully extubation today. Pt had dialysis earlier today. Therapy evals ordered to work with pt when he is able to participate. 5N to see if pt may be a candidate for inpt acute rehab after therapy evals have been completed. KINGA spoke with pt's, girlfriend, Odessa, via phone to provide update. KINGA is following to assist as needed with discharge planning.
[2019-08-15] VITALS (40 sets, daily range): BP systolic 89–172; BP diastolic 56–104
--- NOTE | 2019-08-15 03:35 | NUR ---
PATIENTS CARES WERE ASSUMED AT SHIFT CHANGE. PATIENT WAS ASSESSED AND MEDS WERE PASSED. ANOTHER IV WAS PLASED IN THE RIGHT FORARM. THIS WAS DONE BECAUSE THE IV ANTIBIOTIC IS NOT COMPATABLE WITH THE OTHER DRIPS. PATIENT WAS WASHED AND LINEN WAS CHANGED. HEART RATE HAS MUCH IMPROVED SINCE THE ORDER FOR THE AMIO GTT WAS STARTED. WILL CONTINUE TO MONITOR. THE BED IS IN A LOCKED POSITION.
--- NOTE | 2019-08-15 06:10 | NUR ---
PATIENT HAD A BED BATH.ONE SMALL STOOL WAS FOUND. CLEAN LINEN WAS PUT ON THE BED. CHIN DRAPED IN A TOWEL DUE TO HEAVY SECRETIONS. SUCTION WAS DONE INTERMITTINT.
--- NOTE | 2019-08-15 09:03 | EKG ---
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 : 1965 Requested By: Kemal Stein Order Number: [id number] MD: Shamar Belle Measurements Intervals [place] Rate: 105 P: 46 NM: 175 QRS: -96 QRSD: 136 T: 63 QT: 341 QTc: 451 Interpretive Statements Sinus tachycardia Multiple ventricular premature complexes Right bundle branch block Inferior infarct, age indeterminate Compared to ECG 08/12/2019 15:16:56 Ventricular premature complex(es) now present Electronically Signed On 08-15-2019 9:01:06 CDT by Shamar Belle [email or web address] <ELECTRONICALLY SIGNED> By: Shamar Belle MD, [facility] 08/15/19900 30 30 Shamar Belle MD, [facility] /EPI
--- NOTE | 2019-08-15 09:13 | EKG ---
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 : 1965 Requested By: Kemal Stein Order Number: [id number] MD: Shamar Belle Measurements Intervals [place] Rate: 130 P: [place]: QRS: 122 QRSD: 175 T: -50 QT: 377 QTc: 555 Interpretive Statements Sinus rhythm with paroxysmal wide-complex tachycardia, possibly ventricular tachycardia Right bundle branch block ST depression, consider ischemia, diffuse lds Compared to ECG 08/12/2019 15:16:56 No significant change was found Electronically Signed On 08-15-2019 9:11:32 CDT by Shamar Belle [email or web address] <ELECTRONICALLY SIGNED> By: Shamar Belle MD, [facility] 08/15/19 0911 39 39 Shamar Belle MD, FAC /EPI
--- NOTE | 2019-08-15 09:29 | EKG ---
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 : 1965 Requested By: Kemal Stein Order Number: [id number] MD: Shamar Belle Measurements Intervals [place] Rate: 125 P: 101 [place]: 194 QRS: 115 QRSD: 177 T: -47 QT: 355 QTc: 512 Interpretive Statements Sinus tachycardia with paroxysmal wide-complex tachycardia, probably ventricular tachycardia Right bundle branch block No previous ECGs available for comparison Electronically Signed On 08-15-2019 9:27:29 CDT by Shamar Belle [email or web address] <ELECTRONICALLY SIGNED> By: Shamar Belle MD, [facility] 08/15/19 0927 Shamar Belel MD, [facility] /EPI
[2019-08-15 09:31] LABS: HEMATOCRIT 30.1 % (42.0-52.0); HEMOGLOBIN 9.8 gm/dL (14.0-18.0); MCH 27.6 pg (26.0-34.0); MCHC 32.6 g/dL (28.0-37.0); MCV 84.5 fL (80.0-100.0); RBC 3.56 mil/uL (4.50-6.00); RDW 14.3 % (10.5-14.5); WBC 12.7 thou/uL (4.0-11.0)
[2019-08-15 09:47] LABS: CALCIUM 10.2 mg/dL (8.5-10.1); MAGNESIUM 3.1 mg/dL (1.8-2.4)
[2019-08-15 09:48] LABS: CREATININE 9.8 mg/dL (0.7-1.3)
--- NOTE | 2019-08-15 14:45 | NUR ---
KINGA reviewed chart and spoke with attending physician. Pt remains intubated and in ICU. Pt to have cardiac cath today. Will attempt with vent weaning/extubation tomorrow. Pt will need therapy evals when able to participate. KINGA discussed with 5N rehab assistant. KINGA is following to assist as needed with discharge planning.
--- NOTE | 2019-08-15 16:03 | CATHLAB ---
[facility] [place] [address] INVASIVE PROCEDURE REPORT Name: DAVI MCCLURE Room #: 245-P ADM IN M.R.#: [id number] Admission: 08/03/19 Attend Phys: Kemal Stein MD Discharge: Date of : 61 Report #: [id number] THIS REPORT FOR: cc: FAM - Family physician unknown FAM - Family physician unknown Jose Braxton MD ~ APPROVED REPORT Study performed: 08/15/2019 14:10:40 Patient Details Patient Status: In-Patient Room #: The patient is a 54 year-old male Event Personnel Jose Braxton Bilingual Receptionist, Jyane Gonzalez CVT Monitor, Shell Scott RTR Lidia Marte Wes final finisher Performed Art Access - R femoral artery* Left Heart Cath w/or w/o Coronaries [id number] [facility] Hemostasis with Manual pressure Indication Dyspnea, Ventricular tachycardia Risk Factors Hypercholesterolemia, HypertensionRenal Failure, Dialysis Procedure Narrative The patient was brought electivelyurgently to the Cardiac Catheterization Laboratory and was prepped and draped in a sterile manner. The Right Groin^ was infiltrated with 1% Lidocaine subcutaneous anesthesia. A PINNACLE 4FR Sheath #[id number] sheath was inserted into the RFA^. Coronary angiography was performed using coronary diagnostic catheters. The right coronary system was accessed and visualized with a JR 4 catheter. The left coronary system was accessed and visualized with a JL 4 catheter. Hemostasis was obtained with manual pressure following sheath removal without any complications. The patient tolerated the procedure well and there were no complications associated with the procedure. There was no hematoma. Intraoperative Conscious Sedation Sedation start time: 14:47 Case end Time: [facility] [address] [place] [address] INVASIVE PROCEDURE REPORT Name: DAVI MCCLURE Room #: 245-P [facility]#: [id number] Admission: 08/03/19 Attend Phys: Kemal Stein MD Discharge: Date of : 61 Report #: [id number] 15:15 Fluoro Time: 2.90 minutes Dose: DAP 6348.00 cGycm2 1166 mGy Contrast Type and Amount: Visipaque 60 ml Coronary Angiography The patient's coronary anatomy is co- dominant. Diagnostic Cath Left Main This is a large-caliber vessel, appears angiographically normal. LAD The LAD is a moderate-sized caliber vessel, traverses the anterior wall and wraps around the apex. There is mild disease in the midsegment, 20%. Diagonal 1 This is a patent vessel, with no flow-limiting lesions. Circumflex The left circumflex artery is a codominant vessel, appears angiographically normal. OM1 This is a small to moderate-sized caliber vessel, with no flow-limiting lesions. OM2 This is a small to moderate-sized caliber vessel, with no flow-limiting lesions. Right Coronary There is mild disease in the distal segment, 20%. R PDA This is a small to moderate-sized caliber vessel, with no flow-limiting lesions. Left Ventriculography Left Ventriculography was not performed. Ejection Fraction was 50% based off patient's Echocardiogram. An LVEDP was measured and there is no gradient across the outflow tract. Hemodynamics The aortic pressure is 123/90 mmHg with a mean of 101 mmHg. The left ventricular pressure is 150/7 mmHg with a mean of mmHg. The left ventricular end diastolic pressure is 14 mmHg. Conclusion 1. There is mild, nonobstructive disease in the LAD and RCA. 2. Normal systolic function. 3. Recommend risk factor management. <ELECTRONICALLY SIGNED> By: Jose Braxton MD 08/15/191600 00 00 Jose Braxton MD /INF
--- NOTE | 2019-08-15 19:19 | NUR ---
SR/ST THIS SHIFT WITH PVC'S, NO VT. HEART CATH NEGATIVE. AMIODARONE DRIP AT 0.5 MG/MIN. AFEBRILE THIS SHIFT. 2 LARGE LIQUID BROWN STOOLS, FECAL MANAGEMENT SYSTEM PLACED AND STOOL SAMPLE SENT FOR CDIFF. ISOLATION UNTIL RESULTS ARE BACK.
[2019-08-16] VITALS (82 sets, daily range): BP systolic 66–162; BP diastolic 42–91
[2019-08-16 05:46] LABS: HEMATOCRIT 27.6 % (42.0-52.0); MCH 27.5 pg (26.0-34.0); MCHC 32.4 g/dL (28.0-37.0); MCV 84.7 fL (80.0-100.0); RBC 3.26 mil/uL (4.50-6.00); RDW 14.4 % (10.5-14.5); WBC 13.6 thou/uL (4.0-11.0)
[2019-08-16 06:03] LABS: CALCIUM 10.3 mg/dL (8.5-10.1); POTASSIUM 4.2 mmol/L (3.5-5.1)
[2019-08-16 06:06] LABS: CREATININE 11.7 mg/dL (0.7-1.3)
--- NOTE | 2019-08-16 06:29 | NUR ---
ASSUMED CARE OF PATIENT AT 1900. PATIENT CONTINUES ON ASSIST CONTROL VENT. PATIENT GIVEN A SEDATION VACATION FROM 1999 TO 2019 AND WAS ABLE TO FOLLOW COMMANDS. PATIENT CONTINUES TO BE NPO AND HAS OGT FOR MEDICATION. AT APPROXIMATELY 0430 PATIENT BLOOD PRESSURE WAS MEASURING IN THE 80s/50s. PATIENT HAD LEVOPHED DRIP ON STANDBY AND STARTED LEVOPHED DRIP AT 7.5ML/H. BLOOD PRESSURE IMPROVED TO 100s/60s. WILL CONTINUE TO MONITOR.
--- NOTE | 2019-08-16 09:09 | NUR ---
>7 days of no nutrition. Recommend start nepro 25ml/hr with goal of 50ml/hr with approval from Physician (Renal, Hospitalist, or Pulmonary)
--- NOTE | 2019-08-16 16:46 | NUR ---
KINGA reviewed chart and spoke with attending physician. Pt remains intubated. CPAP trials to continue today. KINGA spoke with pt's girlfriend, Odessa, via phone to provide update. No weekend discharge planned. Therapy to eval pt when he is able to participate. KINGA is following to assist as needed with discharge planning.
--- NOTE | 2019-08-16 17:42 | NUR ---
ASSESSMENT CHARTED. PT STILL INTUBATED. ON CONTINOUS ASSIST CONTROL VENT. HAD DIALYSIS THIS SHIFT. MEDS TITRATED PER PROTOCAL. STARTED ON NEPRO FEEDING @ 25 ML/HR WITH A GOAL OF 50 ML. CHECKED FREQUENTLY AND NEEDS MET. FALL PRECAUTION IN PLACE. RADHA UPDATED ON PT'S PROGRESS. NEW ORDERS NOTED. WILL CONTINUE TO MONITOR.
[2019-08-17] VITALS (97 sets, daily range): BP systolic 75–154; BP diastolic 43–97
[2019-08-17 05:28] LABS: BE(vivo) -1.5 mmol/L (-2 to +3); HCO3 22.4 mmol/L (22.0-26.0); PCO2 34.6 mmHg (35.0-45.0); PO2 137.4 mmHg (80.0-100.0); pH 7.429 (7.360-7.450); sO2 98.8 % (92.0-98.0)
[2019-08-17 05:38] LABS: HEMATOCRIT 26.3 % (42.0-52.0); HEMOGLOBIN 8.7 gm/dL (14.0-18.0); MCH 27.9 pg (26.0-34.0); MCHC 33.2 g/dL (28.0-37.0); MCV 84.2 fL (80.0-100.0); RBC 3.12 mil/uL (4.50-6.00); RDW 14.2 % (10.5-14.5); WBC 10.8 thou/uL (4.0-11.0)
[2019-08-17 05:56] LABS: POTASSIUM 3.9 mmol/L (3.5-5.1)
[2019-08-17 06:02] LABS: CREATININE 9.4 mg/dL (0.7-1.3)
--- NOTE | 2019-08-17 07:58 | NUR ---
[facility] 1900. PT STABLE. BP RUNS SOFT. PT ON LEVOPHED TO BOOST BP. STILL INTUBATED BUT OPENS EYES TO VERBAL AND TACTILE STILMULUS. ST ON MONITOR WITH MULTIPLE PVCs NOTED. ASSESSMETN CHARTED. PROGRESSING WELL WITH POC. NO DISTRESS NOTED. PLAN IS TO WEAN PT OFF VENT/CONTINUE TO TREAT WITH ABX. PROGRESSONG MODERATELY WITH POC. WILL CONITNUE TO MONITOR AND FOLLOW WITH POC
--- NOTE | 2019-08-17 08:59 | NUR ---
ASSESSMENTS AND INTERVENTIONS DOCCUMETNED. RN ASSUMED CARE AT 0700. PATIENT ON LEVOPHED, VERSED AND FENTANYL GTT. PATIENT HYPOTENSIVE AND LEVOPHED TITRATED PER HOSPITAL POLICY TO REACH DESIRED OUTCOME. SEDATION TURNED OFF PATIENT FOLLOWING COMMANDS AND CPAP TRIAL INTIATED PER RT AT 0745. PATIENT REMIANS ON CPAP TRIAL AND BLOOD GASES HAVE BEEN OBTAINED. PATIENT ALERT AND FOLLOWING COMMANDS AT THIS TIME.
[2019-08-17 09:00] LABS: BE(vivo) -2.9 mmol/L (-2 to +3); HCO3 21.5 mmol/L (22.0-26.0); PCO2 36.1 mmHg (35.0-45.0); PO2 129.8 mmHg (80.0-100.0); pH 7.393 (7.360-7.450); sO2 98.6 % (92.0-98.0)
[2019-08-18] VITALS (67 sets, daily range): BP systolic 76–206; BP diastolic 51–112
[2019-08-18 04:01] LABS: BE(vivo) -3.5 mmol/L (-2 to +3); HCO3 21.3 mmol/L (22.0-26.0); PCO2 37.2 mmHg (35.0-45.0); pH 7.376 (7.360-7.450); sO2 98.5 % (92.0-98.0)
--- NOTE | 2019-08-18 05:42 | NUR ---
Patient making slow progress towards outcome goals. Oxygenation optimal with current vent settings. Tolerating tube feedings Nepro 50 ml/hr at goal rate. Fentanyl 25 mcg/HR and Versed 3 mg/HR for vent sedation. Patient drowsy but arousable with verbal stimuli. Metoprolol given for HR at 110/prn with goo results. Rhythm generally regular with BBB. Short runs of SVT, No Vtach. Levo to maintain MAP >60 currently at 13 mg/min. Large liquid stools, Reglan doses held.
--- NOTE | 2019-08-18 05:56 | NUR ---
Remains febrile Temp 100 to 101 despite Tylenol.
[2019-08-18 05:58] LABS: HEMATOCRIT 27.7 % (42.0-52.0); HEMOGLOBIN 9.3 gm/dL (14.0-18.0); MCH 28.4 pg (26.0-34.0); MCHC 33.7 g/dL (28.0-37.0); MCV 84.4 fL (80.0-100.0); RBC 3.28 mil/uL (4.50-6.00); RDW 14.1 % (10.5-14.5); WBC 12.9 thou/uL (4.0-11.0)
[2019-08-18 06:11] LABS: ALBUMIN 2.7 g/dL (3.4-5.0); CALCIUM 9.2 mg/dL (8.5-10.1); MAGNESIUM 2.9 mg/dL (1.8-2.4); POTASSIUM 3.8 mmol/L (3.5-5.1)
[2019-08-18 06:21] LABS: CREATININE 12.1 mg/dL (0.7-1.3)
--- NOTE | 2019-08-18 16:46 | NUR ---
ASSUMED CARE OF PT AT 0700. PT REMAINES INTUBATED AND SEDATED. FENTANYL, VERSED AND LEVOPHED GTTS INFUSING. PT HYPOTENSIVE LEVO TITRATED TO KEEP MAP ABOVE 60. METOPROLOL GIVEN ONCE FOR HR OF 123. PT ABLE TO FOLLOW COMMANDS ON SEDATION VACATION. PT DID NOT TOLERATE CPAP TRIAL VERY LONG, PT BECAME TACHYPNEIC. PT TOLERATING TUBE FEEDINGS. SPOKE WITH PT GIRLFRIEND TWICE THIS SHIFT TO UPDATE ON CARE. WILL CONTINUE TO MONITOR.
[2019-08-19] VITALS (59 sets, daily range): BP systolic 71–158; BP diastolic 33–97
[2019-08-19 05:03] LABS: HCO3 17.8 mmol/L (22.0-26.0); PO2 98.8 mmHg (80.0-100.0); pH 7.349 (7.360-7.450); sO2 97.3 % (92.0-98.0)
--- NOTE | 2019-08-19 06:58 | NUR ---
PATIENT REMAINS INTUBATED AND SEDATED, MULTIPLE VARIANCES PUT IN. REQUESTING NEW ORDERS TO INITIATE OT EVAL WHEN PATIENT IS MEDICALLY STABLE AND ABLE TO PARTICIPATE IN FUNCTIONAL ASSESSMENT.
[2019-08-19 07:02] LABS: HEMATOCRIT 26.2 % (42.0-52.0); HEMOGLOBIN 8.7 gm/dL (14.0-18.0); MCH 27.9 pg (26.0-34.0); MCHC 33.1 g/dL (28.0-37.0); MCV 84.4 fL (80.0-100.0); RBC 3.1 mil/uL (4.50-6.00); RDW 14.6 % (10.5-14.5); WBC 12.7 thou/uL (4.0-11.0)
[2019-08-19 07:42] LABS: ALBUMIN 2.5 g/dL (3.4-5.0); CALCIUM 9.6 mg/dL (8.5-10.1); PHOSPHORUS 8.4 mg/dL (2.5-4.9); POTASSIUM 4.3 mmol/L (3.5-5.1)
[2019-08-19 07:48] LABS: CREATININE 15.4 mg/dL (0.7-1.3)
--- NOTE | 2019-08-19 07:54 | NUR ---
Pt CONTINUES TO BE INTUBATED AND SEDATED. WILL PLACE ON HOLD AT THIS TIME AND AWAIT NEW ORDERS WHEN Pt IS APPROPRIATE FOR THERAPY
--- NOTE | 2019-08-19 07:58 | NUR ---
Assessments and interventions documented. Pt remains intubated and sedated. Withdraws to pain and moves we stimulated. Febrile on this shift t-mas 99.9. Resolve when bathed with cool. Patient tolerated vent well no adverse events throughout the night. Patient stable but no progressing toward goals
--- NOTE | 2019-08-19 09:25 | NUR ---
ASSESSMENTS AND INTERVENTIONS DOCCUMENTED. RN ASSUMED CARE AT 0700. DCI RN PREPARING TO START DIALYISIS. DR. XAVIER ROUNDING, NO NEW ORDERS. DR. BENNETT AT BEDSIDE AROUND 0915. ORDERS TO DC REGLAN. PATIENT CALM AND REMAINING ON DIALYSIS.
[2019-08-19 12:43] LABS: HCO3 24.9 mmol/L (22.0-26.0); PCO2 36.8 mmHg (35.0-45.0); PO2 108.6 mmHg (80.0-100.0); pH 7.448 (7.360-7.450); sO2 98.2 % (92.0-98.0)
--- NOTE | 2019-08-19 16:23 | NUR ---
SW reviewed chart and spoke with attending physician. Pt remains in ICU and intubated. CPAP trials today, with goal of extubation today. Pt will need therapy evals when able to participate. KINGA discussed case with 5N rehabilitation services aide to follow, should pt be appropriate for inpt acute rehab. SW is following to assist as needed with discharge planning.
[2019-08-20] VITALS (57 sets, daily range): BP systolic 79–166; BP diastolic 46–101
--- NOTE | 2019-08-20 08:11 | NUR ---
Pt remains intubated sedation being titrated down. Patient more responsive. Open eyes spontaneously and make facial gestures. Patient is febrile but responds well to cooling by just removing excessive sheets and cooling room. No adverse events throughout the night. No sign of distress. Patient is stable progressing toward goals.
--- NOTE | 2019-08-20 08:24 | NUR ---
RN ASSUMED CARE AT 0700. PATIENT ON LEVOPHED, VERSED AND FENTANYL GTT. PATIENT ALERT AND FOLLOWING COMMANDS. DR. XAVIER ON THE UNIT, NO NEW ORDERS. PATIENT TURNED TO CPAP TRIAL PER RT AT 0815. PATIENT RESTING AND TOLERATING IT WELL.
[2019-08-20 12:16] LABS: BE(vivo) -3.5 mmol/L (-2 to +3); HCO3 21.9 mmol/L (22.0-26.0); PCO2 40.9 mmHg (35.0-45.0); PO2 109.6 mmHg (80.0-100.0); pH 7.347 (7.360-7.450); sO2 97.8 % (92.0-98.0)
--- NOTE | 2019-08-20 15:01 | NUR ---
SW reviewed chart and spoke with attending physician. Pt with continued fevers. Pt is intubated and will have bronch today at bedside. Pt will need therapy evals once extubated and able to participate. SW is following to assist as needed with discharge planning.
[2019-08-21] VITALS (22 sets, daily range): BP systolic 101–171; BP diastolic 65–107
--- NOTE | 2019-08-21 06:47 | NUR ---
ASSESSMENTS CHARTED. MEDS GIVEN CHARTED. PATIENT ON FACE SHIELD AT START OF SHIFT, LUNG SOUND COARSE. DURING SHIFT PATIENT IS TRANSFERED TO NASAL CANULA ON 3 LITERS, LUNGS STILL COARSE. DIALYSIS TREATMENT SCHEDULED FOR THIS MORNING. UNABLE TO GIVE MEDS PER TUBE TUBE WAS DC'D EARLIER. PATIENT NEEDS SPEECH EVALUATION PRIOR TO GETTING ORAL MEDS. LIQUID STOOL. FALL PRECAUTIONS IN PLACE DURING SHIFT. DENIED PAIN. TURNED.
--- NOTE | 2019-08-21 07:23 | NUR ---
RN ASSUMED CARE OF PATIENT AT 0700. PATIENT ALERT AND FOLLOWING COMMANDS. PATIENT PLACED ON CPAP TRIAL PER RT AT 0730.
[2019-08-21 07:28] LABS: CALCIUM 9.8 mg/dL (8.5-10.1); POTASSIUM 5.3 mmol/L (3.5-5.1)
[2019-08-21 07:29] LABS: ABSOLUTE NEUTROPHILS 11.5 thou/uL (1.4-8.2); BASOPHILS 0.5 % (0.0-2.0); EOSINOPHILS 0.7 % (0.0-3.0); HEMATOCRIT 23.9 % (42.0-52.0); LYMPHOCYTES 3.8 % (24.0-44.0); MCH 27.9 pg (26.0-34.0); MCHC 33.7 g/dL (28.0-37.0); MCV 82.7 fL (80.0-100.0); MONOCYTES 7.7 % (1.0-8.0); POLYS 87.3 % (36.0-66.0); RBC 2.88 mil/uL (4.50-6.00); RDW 14.8 % (10.5-14.5); WBC 13.2 thou/uL (4.0-11.0)
[2019-08-21 07:31] LABS: CREATININE 13.7 mg/dL (0.7-1.3)
[2019-08-21 07:32] LABS: PLATELET COUNT 376 thou/uL (150-400)
--- NOTE | 2019-08-21 07:34 | NUR ---
RN ASSUMED CARE AT 0700. PATIENT IN BED AND DCI PERSONELE PREPARING FOR DIALYSIS. PATIENT FOLLOWING COMMANDS AND DROWSY. PATIENT ABLE TO FOLLOW COMAANDS AND ANSWER ORIENTATION QUESTIONS. DCI NURSE STARTING DIALYSIS ON PATIENT. AT BEDSIDE. ORDERS RECIEVED.
--- NOTE | 2019-08-21 15:09 | PATH ---
[facility] [address] [place] [address] PATHOLOGY RPT PROCEDURE Name: DAVI MCCLURE Room #: 240-P ADM IN M.R.#: [id number] Admission: 08/03/19 Date of : 61 Discharge: Report #: [id number] Path Case #: [id number] Note LCA Accession Number: [id number] TESTS RESULT FLAG UNITS REF RANGE LAB Clinician Provided Cytology Information No. of containers..01 Other (Miscellaneous) Source: BAL RML DIAGNOSIS: BAL RML NEGATIVE FOR MALIGNANT CELLS. REACTIVE BRONCHIAL CELLS ARE PRESENT. PULMONARY MACROPHAGES (DUST CELLS) ARE PRESENT. Signed out by: 02 Davonte Stock MD, Pathologist NPI- [id number] Performed by: 01 Tatyana Zepeda, Shrinker ([facility]) Gross description: 01 15ML, CLOUDY WHITE, 1 TP /LCS 08/20/2019 5621 Local FLAG LEGEND: L-Low Normal,H-High Normal,LL-Alert Low,HH-Alert High <-Panic Low,>-Panic High,A-Abnormal,AA-Critical Abnormal Performed at: [address] [place] [address] Candido Quinn MD, [address] [address] Tiny Martinez MD, Specimen Comment: A courtesy copy of this report has been sent to [phone] Specimen Comment: [id number] Specimen Comment: Report sent to / DR BENNETT Specimen Comment: A duplicate report has been generated due to demographic updates. Performed at: [address], [place], [place] [id number] MD Candido Quinn MD Phone: [phone]
--- NOTE | 2019-08-21 16:03 | NUR ---
KINGA reviewed chart and spoke with attending physician. Pt was extubated yesterday. Remains in ICU. Pt had dialysis earlier today. Therapy ordered to evaluate pt. KINGA discussed with 5N rehabilitation case coordinator to see if pt would be a candidate for 5N inpt acute rehab. KINGA is following to assist as needed with discharge planning.
[2019-08-22] VITALS (23 sets, daily range): BP systolic 101–144; BP diastolic 58–87
--- NOTE | 2019-08-22 07:52 | NUR ---
PT FOLLOWING COMMANDS. PT HAD THICKENED LIQUID WITHOUT ANY PROBLEM. CHART CHECK. REPORT GIVEN TO ONCOMING JUSTICE FAROOQ.
--- NOTE | 2019-08-22 15:34 | NUR ---
KINGA reviewed chart and spoke with attending physician. Pt extubated and is able to participate with therapy. KINGA discussed with 5N rehab nurse, who states they are not in network with pt's insurance. KINGA spoke with pt's girlfriend, Odessa, via phone to provide update. KINGA discussed alternate inpt acute rehab facilites. Celestinomanjit is agreeable with referrals to [facility] [place], [facility]. KINGA faxed face sheet to [facility] for review. Notified liaison. Awaiting input from [facility] at this time. KINGA is following to assist as needed with discharge planning.
--- NOTE | 2019-08-22 16:08 | PATH ---
[facility] [address] [place] [address] PATHOLOGY RPT PROCEDURE Name: DAVI MCCLURE Room #: 240-P ADM IN M.R.#: [id number] Admission: 08/03/19 Date of : 61 Discharge: Report #: [id number] Path Case #: [id number] Note LCA Accession Number: [id number] TESTS RESULT FLAG UNITS REF RANGE LAB Clinician Provided Cytology Information No. of containers..01 Other (Miscellaneous) Source: BAL RML DIAGNOSIS: BAL RML NEGATIVE FOR MALIGNANT CELLS. REACTIVE BRONCHIAL CELLS ARE PRESENT. REACTIVE SQUAMOUS CELLS ARE PRESENT. PULMONARY MACROPHAGES (DUST CELLS) ARE PRESENT. Signed out by: 02 Davonte Stock MD, Pathologist NPI- [id number] Performed by: 01 Tatyana Zepeda, Ui Architect ([facility]) Gross description: 01 5ML, CLOUDY WHITE, 1 TP /LCS 08/21/2019 1121 Local FLAG LEGEND: L-Low Normal,H-High Normal,LL-Alert Low,HH-Alert High <-Panic Low,>-Panic High,A-Abnormal,AA-Critical Abnormal Performed at: [address] [place] [address] Candido Quinn MD, [address] [address] Rashawn Medellin MD, Specimen Comment: A courtesy copy of this report has been sent to [phone] Specimen Comment: [phone] Specimen Comment: Report sent to / DR BENNETT Specimen Comment: A duplicate report has been generated due to demographic updates. Performed at: [address], [place], [place] [id number] MD Candido Quinn MD Phone: [phone]
--- NOTE | 2019-08-22 16:39 | NUR ---
PATIENT SEEN THIS DATE BY FOR CONSULT. PATIENT SHOULD BE AN ACUTE REHAB CANDIDATE HE IMPROVES. [facility] NOT A PARTICIPATING PROVIDER FOR PATIENT'S INSURANCE AND THERE ARE NO OON BENEFITS. BED AND BREAKFAST COOK INFORMED. THANK YOU FOR THIS REFERRAL.
--- NOTE | 2019-08-22 17:48 | NUR ---
ASSUMED CARE @ 0700 08/22/19 PER ICU PROTOCOL AND DOCUMENTED. PT AXO X3, ABLE TO FOLLOW COMMANDS BUT INTERMITTENTLY CONFUSED.DR MORENO TO BEDSIDE, LOPRESSOR PO RESUMED PER RECENT RYTHM. DR PFEIFFER TO BEDSIDE, ORDERS PUT IN FOR REHAB CONSULT, DR TALAMANTES AWARE OF PT. SPEECH THERAPIST TREATED AND EVALUATED DURING SHIFT, DIET ADVANCED. RADHA SARIAH GIRLFRIEND CALLED X 2, CODE VERIFIED AND UPDATED EACH TIME. WILL CONT TO MONITOR.
[2019-08-23] VITALS (7 sets, daily range): BP systolic 99–155; BP diastolic 67–111
--- NOTE | 2019-08-23 03:10 | NUR ---
REPORT GIVEN TO NURSE ON 4W. PATIENT MOVING TO ROOM 450, TRANSFER ORDERS RECEIVED FROM ADRIANNE VILA MARKETING OPERATIONS ASSISTANT PATIENT IS STABLE. ALL BELONGINGS SENT WITH PATIENT AND SPOKESPERSON, RADHA, NOTIFIED.
--- NOTE | 2019-08-23 04:40 | NUR ---
TRANSFERED FROM ICU BY BED. PATIENT HAS PERSISTENT COUGH AND PAIN. FENTANYL GIVEN IV PUSH FOR PAIN, PATIENT STATES NO RELIEF. TOLERATED 120 CC HONEY THICKENED TEA. HEAD OF BED UP 40 DEGREES AND O2 2L IN ORDER TO HELP BREATHING
--- NOTE | 2019-08-23 14:04 | NUR ---
STILL AWAITING THERAPY EVALS TO SEND TO [facility] FOR REVIEW. CARE TEAM INDICATED NO WEEKEND DC ANTICPATED.
[2019-08-23 16:36] LABS: HEMATOCRIT 23.6 % (42.0-52.0); HEMOGLOBIN 7.8 gm/dL (14.0-18.0); MCH 27.6 pg (26.0-34.0); MCHC 33.2 g/dL (28.0-37.0); MCV 83.1 fL (80.0-100.0); PLATELET COUNT 366 thou/uL (150-400); RBC 2.84 mil/uL (4.50-6.00); RDW 14.6 % (10.5-14.5); WBC 17.2 thou/uL (4.0-11.0)
[2019-08-23 17:06] LABS: ALBUMIN 2.6 g/dL (3.4-5.0); CALCIUM 9.2 mg/dL (8.5-10.1); MAGNESIUM 2.3 mg/dL (1.8-2.4); POTASSIUM 4.1 mmol/L (3.5-5.1); TOTAL BILIRUBIN 0.7 mg/dL (0.2-1.0); TOTAL PROTEIN 7.4 g/dL (6.4-8.2)
[2019-08-23 17:07] LABS: CREATININE 6.7 mg/dL (0.7-1.3)
[2019-08-23 17:32] LABS: METAMYELOCYTES 1 %; PLATELET ESTIMATE NORMAL
--- NOTE | 2019-08-23 20:02 | NUR ---
Received awake on bed. Due medications given as prescribed, able to swallow meds w/o difficulty. A+O to self, may be confused at times- re-oriented. On O2 at 2lpm via nasal cannula. On pureed, renal, carb controlled diet, honey thick consistency diet- encouraged and assisted in eating and drinking; pt is a feeder; swallow precautions observed, kept upright during feeding. On telemtry- running tachycardic- Dr Myers informed during his rounds; EKG ordered- strip shown to physician; with episode of Vtach this AM, Dr Myers informed during his rounds. On blood sugar monitoring- taken and recorded accordingly; with sliding scale ordered. Able to have a bowel movement today- charted. With peritoneal dialysis access on his abdomen- dressing intact- access not being used. With L upper arm hemodialysis fistula- intact, positive bruit and thrill- dialysis schedule --; dialysis nurse already at pt's room during shift change, tolerated today's session. With central line at R jugular, triple lumen- dressing intact and flushing well. Turned to his sides frequently. Incontinent of bowel and bladder- checked frequently and changed as needed. Maintained on isolation due to Acinobacter from his sputum- protocol observed. Complained of pain, due PRN pain meds given as prescribed. Dr Braxton informed that pt has been having HR 120's-130's- physician aware and no new orders made. Attempted to call pt's authorized contact, not answering call- will try to update again tomorrow. To continue monitoring patient.
[2019-08-24] VITALS (65 sets, daily range): BP systolic 54–175; BP diastolic 28–110
--- NOTE | 2019-08-24 03:01 | NUR ---
PATIENT ALERT AND ORIENTED TO SELF ONLY. VERY RESTLESS DURING THE NIGHT, PUTTING HIS LEG OOB AND ROLLING TO HIS RIGHT ALMOST HANGING OUT OF THE BED. UNABLE TO FOLLOW DIRECTIONS. 02NC OFF AND ON PER PATIENT. NON PRODUCTIVE COUGH. RIGHT IJ REMAINS IN PLACE. PATIENT TOOK MEDICATION WITH APPLESAUCE W/O COMPLICATION. INCONTINENT OF STOOL. BS MONITORED PER ORDER. LEFT UPPER ARM FISTULA DRESSING DRY AND INTACT. WILL MONITOR.
--- NOTE | 2019-08-24 03:18 | NUR ---
PATIENT MEDICATED FOR PAIN AND RESTLESSNESS X1 AT TIME OF NOTE. CONTINUES TO PUT HIS LEGS OOB AND TURNS SIDEWAYS IN THE BED. WILL MONITOR.
[2019-08-24 05:37] LABS: HEMATOCRIT 23.5 % (42.0-52.0); MCH 28.1 pg (26.0-34.0); MCHC 33.9 g/dL (28.0-37.0); RBC 2.83 mil/uL (4.50-6.00); WBC 13.2 thou/uL (4.0-11.0)
[2019-08-24 06:17] LABS: CALCIUM 9.4 mg/dL (8.5-10.1); MAGNESIUM 2.5 mg/dL (1.8-2.4); POTASSIUM 4.1 mmol/L (3.5-5.1)
[2019-08-24 06:29] LABS: CREATININE 8.5 mg/dL (0.7-1.3)
--- NOTE | 2019-08-24 11:10 | NUR ---
Received awake on bed. Due medications given as prescribed, able to swallow medications one by one, taken with apple sauce. A to self only. On O2 at 2lpm via nasal cannula. On telemetry- strips attached to chart, no complaints of chest pain, crushing or heaviness sensation. On pureed, carb-controlled, renal diet- assisted and encouraged in eating and drinking; on honey thick liquids- aspiration precaution observed, kept upright during feeding. On blood sugar monitoring- taken and recorded accordingly. With peritoneal access on his abdomen- dressing in place; not being used as of the moment. With L upper arm hemodialysis access- dressing C/D/I; scheduled , had his dialysis yesterday. With R IJ central line in place, dressing in place- on IV antibiotics. Turned on his sides every 2 hours. Assisted in ADLs. Falls bundle in place. Maintained on isolation due to Acinobacter in his sputum. To continue monitoring patient. Dr Myers informed re: HR on 110's-120's today, yesterday running 120's-130's, to inform immigration lawyer with regards to HR.
[2019-08-24 15:17] LABS: BE(vivo) 2.7 mmol/L (-2 to +3); HCO3 25.8 mmol/L (22.0-26.0); PCO2 34.2 mmHg (35.0-45.0); PO2 94.4 mmHg (80.0-100.0); pH 7.496 (7.360-7.450); sO2 97.8 % (92.0-98.0)
[2019-08-24 19:46] LABS: BE(vivo) -1.2 mmol/L (-2 to +3); HCO3 21.6 mmol/L (22.0-26.0); PCO2 29.2 mmHg (35.0-45.0); PO2 84.9 mmHg (80.0-100.0); pH 7.487 (7.360-7.450); sO2 97.2 % (92.0-98.0)
[2019-08-24 20:02] LABS: HEMATOCRIT 24.4 % (42.0-52.0); HEMOGLOBIN 8.3 gm/dL (14.0-18.0); MCH 28.6 pg (26.0-34.0); MCHC 34.2 g/dL (28.0-37.0); MCV 83.6 fL (80.0-100.0); PLATELET COUNT 387 thou/uL (150-400); RBC 2.91 mil/uL (4.50-6.00); RDW 15.3 % (10.5-14.5); WBC 14.2 thou/uL (4.0-11.0)
[2019-08-24 20:20] LABS: ABSOLUTE NEUTROPHILS 11.6 thou/uL (1.4-8.2); METAMYELOCYTES 2 %
[2019-08-24 20:21] LABS: ANISOCYTOSIS 1+; PLATELET ESTIMATE NORMAL; POLYCHROMASIA SLIGHT
[2019-08-24 22:24] LABS: BE(vivo) -1.8 mmol/L (-2 to +3); PCO2 33.3 mmHg (35.0-45.0); PO2 142.9 mmHg (80.0-100.0); pH 7.438 (7.360-7.450); sO2 98.9 % (92.0-98.0)
[2019-08-24 22:51] LABS: URINE BILIRUBIN 2+ (Negative); URINE BLOOD 3+ (Negative); URINE CLARITY SL CLOUDY; URINE COLOR BROWN; URINE GLUCOSE-RANDOM* NEGATIVE (Negative); URINE KETONES NEGATIVE (Negative); URINE LEUKOCYTES-REFLEX TRACE (Negative); URINE PROTEIN (DIPSTICK) 3+ (Negative)
[2019-08-24 22:54] LABS: ICTOTEST (BILI CONFIRMATORY) Positive (Negative); URINE NITRITE-REFLEX POSITIVE (Negative)
[2019-08-24 23:09] LABS: BACTERIA-REFLEX None Seen /HPF (None Seen); CASTS None Seen /LPF (None Seen); CRYSTALS None Seen /LPF (None Seen); MUCUS None Seen strn/LPF (None Seen); SQUAMOUS None Seen /LPF (0-3); URINE RBC 3-10 Few /HPF (0-2); URINE WBC-REFLEX 0-5 Rare /HPF (0-5)
[2019-08-25] VITALS (52 sets, daily range): BP systolic 83–191; BP diastolic 49–89
--- NOTE | 2019-08-25 01:48 | NUR ---
ASSUMED CARE OF PATIENT AT SHIFT CHANGE. EXTREMELY TACHYPNIC, LETHARGIC, UNSTABLE. DR XAVIER NOTIFIED OF PATIENT ARRIVAL. ORDERS RECIEVED FOR ABG, BIPAP AND LABS. RESULTS CALLED TO DR XAVIER. DECISION MADE TO INTUBATE TO MAINTAIN AIRWAY. SIGNIFICANT OTHER CALLED, UPDATED ON POC, INTUBATION AND RESTRAINTS. PATIENT INTUBATED AT 2100, PROPFOL, LEVOPHED AND VERSED INITIATED. PATIENT TO CT PER ORDERS. WILL NEED HEAD CT IN AM. LIGHT SEDATION MAINTAINED. POC UPDATED. SEE DOCUMENTATION FOR RESTRAINTS AND MEDS. NOT PROGRESSING TOWARDS POC GOALS.
--- NOTE | 2019-08-25 16:42 | NUR ---
PT SEDATED ON VENT. VENT SETTINGS UNCHANGED DURING SHIFT.PROPOFOL, VERSED GTT FOR VENT MANAGEMENT. LEVO GTT FOR BP SUPPORT. CT OF PT HEAD TODAY. BRONCH AT BEDSIDE. PT HAS COPIOUS AMOUNTS OF ORAL SECREATIONS. PLAN TO DIALYZE TOMORROW. ANEURIA. NO BM TODAY. PT AND FAMILY EDUCATED AND UPDATED. WILL CONTINUE TO MONITOR.
[2019-08-26] VITALS (95 sets, daily range): BP systolic 80–157; BP diastolic 48–95
--- NOTE | 2019-08-26 07:31 | NUR ---
PATIENT REMAINED INTUBATED AND SEDATED OVER NIGHT, PROPOFOL GTT AND VERSED GTT FOR SEDATION. PATIENT MOVES ALL EXTS. LOCALIZES TO STIMULATION. ATTEMPTS TO OPEN EYES. SR WITH A BBB ON THE MONITOR 70-80. BP 120S/80S LEVOPHED CURRENTLY AT 14 MCG/MIN. TEMP MAX 100.2, TYLENOL GIVEN PRN WITH EFFECTIVENESS. 7.5 ETT, 23 @ TEETH, VENT SETTINGS UNCHANGED FROM PREVIOUS SHIFT. LUNGS COARSE TO DIM/DIM. COPIOUS ORAL SECRETIONS. OG TO L.I.S WITH MINIMAL GREEN/YELLOW OUTPUT. NO BOWEL MOVEMENT. ANURIC. RIGHT IJ TL IN PLACE. R FOREARM 20 GAUGE, R HAND [address] LEFT UPPER ARM AV FISTULA. RLQ PERITONEAL DIALYSIS CATHETER. CURRENTLY RECEVING HEMODIALYSIS, TOLERATING WELL. UPDATED SHENICE THIS MORNING. REPORTED OFF TO DAY SHIFT RN.
--- NOTE | 2019-08-26 08:20 | NUR ---
Pt PLACED ON HOLD FROM P.T. PER DEPT POLICY DUE TO DECLINE IN MEDICAL STATUS AND TX TO ICU. REQUEST NEW ORDERS ONCE PT IS ABLE TO PARTICIPATE IN THERAPEUTIC ACTIVITIES.
--- NOTE | 2019-08-26 08:20 | EKG ---
[facility] [place] [address] [address] [place] [address] ELECTROCARDIOGRAM REPORT Name: GONZALESDAVI KEMP Room #: 241-P ADM IN M.R.#: [id number] Admission: 08/03/19 Attend Phys: Kemal Stein MD Discharge: Date of : 61 Report #: [id number] THIS REPORT FOR: cc: FAM - Family physician unknown FAM - Family physician unknown Shamar Belle MD [facility] THIS REPORT FOR: //name// [facility] Test Date: 2019-08-23 Test Time: 09:04:32 Pat Name: DAVI MCCLURE Department: Room: [facility] Gender: M Work Counselor: Lala LYLES : 1965 Requested By: Jose Braxton Order Number: [id number] MD: Shamar Belle Measurements Intervals [place] Rate: 115 P: -50 DC: 152 QRS: -86 QRSD: 147 T: 46 QT: 343 QTc: 475 Interpretive Statements Sinus or ectopic atrial tachycardia Atrial premature complexes Right bundle branch block Inferior infarct, age indeterminate Compared to ECG 08/14/2019 21:40:14 Paroxysmal wide-complex tachycardia no longer present Electronically Signed On 08-26-2019 8:18:18 CDT by Shamar Belle [email or web address] <ELECTRONICALLY SIGNED> By: Shamar Belle MD, [facility] 08/26/19817 3 3 Shamar Belle MD, [facility] /EPI
--- NOTE | 2019-08-26 08:48 | EKG ---
[facility] [place] [address] ELECTROCARDIOGRAM REPORT Name: GONZALESDAVI KEMP Room #: 241-P ADM IN M.R.#: [id number] Admission: 08/03/19 Attend Phys: Kemal Stein MD Discharge: Date of : 61 Report #: [id number] THIS REPORT FOR: cc: FAM - Family physician unknown FAM - Family physician unknown Shamar Belle MD [facility] THIS REPORT FOR: //name// [facility] Test Date: 2019-08-24 Test Time: 15:49:53 Pat Name: DAVI MCCLURE Department: Room: [facility] Gender: M Data Entry Analyst: Lala LYLES : 1965 Requested By: Mauri Myers Order Number: [id number] MD: Shamar Belle Measurements Intervals [place] Rate: 115 P: AL: QRS: -98 QRSD: 168 T: 55 QT: 354 QTc: 490 Interpretive Statements Sinus tachycardia Right bundle branch block Inferior infarct, age indeterminate Compared to ECG 08/14/2019 21:40:14 Atrial premature complexes no longer present Electronically Signed On 08-26-2019 8:46:12 CDT by Shamar Belle [email or web address] <ELECTRONICALLY SIGNED> By: Shamar Belle MD, [facility] 08/26/19 0846 1549 1549 Shamar Belle MD, [facility] /EPI
--- NOTE | 2019-08-26 11:29 | NUR ---
Nutrition: REC add beneprotein powder packets up to 4 daily if water flushes can be added.
--- NOTE | 2019-08-26 14:00 | NUR ---
PT HAS DIMINISHED LUNGS BILATERALLY...COPIUS AMOUNTS OF CLEAR SPUTUM SUCTIONED...WILL MONITOR
--- NOTE | 2019-08-26 16:14 | NUR ---
SW reviewed chart and spoke with attending physician. Pt was transferred to ICU from on 08/23 and placed on the ventilator. Pt had bronch. Surgery consulted to remove PD catheter. [facility] Pt will need new therapy orders when able to participate. KINGA is following to assist as needed with discharge planning.
[2019-08-27] VITALS (138 sets, daily range): BP systolic 72–126; BP diastolic 37–103
[2019-08-27 05:07] LABS: PROTIME 10.7 Seconds (9.3-11.4)
[2019-08-27 05:16] LABS: HEMOGLOBIN 7.1 gm/dL (14.0-18.0); MCH 28.5 pg (26.0-34.0); MCHC 33.9 g/dL (28.0-37.0); RBC 2.5 mil/uL (4.50-6.00); RDW 15.2 % (10.5-14.5); WBC 10.8 thou/uL (4.0-11.0)
[2019-08-27 05:32] LABS: ALBUMIN 1.9 g/dL (3.4-5.0); CALCIUM 8.6 mg/dL (8.5-10.1); CREATININE 8.4 mg/dL (0.7-1.3); PHOSPHORUS 9.1 mg/dL (2.5-4.9); POTASSIUM 5.2 mmol/L (3.5-5.1)
--- NOTE | 2019-08-27 08:45 | NUR ---
RN ASSUMED CARE AT 0700. PATIENT LIGHTLY SEDATED. DR. DECKER AT BEDSIDE AROUND 0730. PATIENT PREPARING FOR SURGEY. ANESTHESIOLOGIST AT BEDSIDE OBTAINING ANESTHESIA CONSENT. AT 0845, DR MORENO AT BEDSIDE. POC AND GOALS DISCUSSED. NO NEW ORDERS.
[2019-08-28] VITALS (82 sets, daily range): BP systolic 84–138; BP diastolic 41–88
[2019-08-28 03:45] LABS: ALBUMIN 1.8 g/dL (3.4-5.0); CALCIUM 8.2 mg/dL (8.5-10.1); PHOSPHORUS 11.8 mg/dL (2.5-4.9); POTASSIUM 5.6 mmol/L (3.5-5.1)
[2019-08-28 03:47] LABS: HEMOGLOBIN 6.6 gm/dL (14.0-18.0); WBC 8.6 thou/uL (4.0-11.0)
[2019-08-28 03:50] LABS: MCH 28.7 pg (26.0-34.0); MCHC 33.9 g/dL (28.0-37.0); MCV 84.6 fL (80.0-100.0); RBC 2.29 mil/uL (4.50-6.00); RDW 15.2 % (10.5-14.5)
[2019-08-28 03:52] LABS: APTT 34.4 Seconds (24.5-32.8); PROTIME 10.4 Seconds (9.3-11.4)
[2019-08-28 03:54] LABS: CREATININE 10.1 mg/dL (0.7-1.3)
[2019-08-28 05:14] LABS: HEMATOCRIT 19.4 % (42.0-52.0)
--- NOTE | 2019-08-28 08:52 | NUR ---
RN ASSUMED CARE OF PATIENT AT 0700. DIALYSIS SETTING UP AND READY TO BEGIN DIALYSIS. PATIENT SCHEDULED FOR TRACH SURGERY. RN CALLING MARIA R CONNOLLYRODGER, BUT RADHA CLAIMS SHE HAS NOT SPOKEN TO ANY OF THE VOCATIONAL AUTO BODY INSTRUCTOR SINCE THE PATIENT WAS ADMITTED. JERONIMO SEAMAN ROUNDING ON PATIENT AND UODATED ABOUT SOCIAL SITUATION. DR. DECKER TO CALL FAMILY. AT 0815, DR. MORENO AT BEDSIDE. NO NEW ORDERS. AT 0850, DR. HORTA PAGED TO DISCUSS POC FOR THE PATIENT.
--- NOTE | 2019-08-28 15:13 | PATH ---
[facility] [address] [place] [address] PATHOLOGY RPT PROCEDURE Name: DAVI MCCLURE Room #: 241-P ADM IN M.R.#: [id number] Admission: 08/03/19 Date of : 61 Discharge: Report #: [id number] Path Case #: [id number] Note LCA Accession Number: [id number] TESTS RESULT FLAG UNITS REF RANGE LAB Clinician Provided Cytology Information No. of containers..01 Other (Miscellaneous) Source: BAL DIAGNOSIS: 02 BAL NEGATIVE FOR MALIGNANT CELLS. REACTIVE BRONCHIAL CELLS ARE PRESENT. PULMONARY MACROPHAGES PRESENT, INDICATIVE OF LOWER RESPIRATORY TRACT SAMPLING. SCANT CELLULARITY. THIS INTERPRETATION INCLUDES EVALUATION OF A CELL BLOCK. ACUTE INFLAMMATORY CELLS PRESENT IN THE BACKGROUND. Pathologist ICD10: 02 A41.9 Signed out by: 02 Tiny Martinez MD, Pathologist NPI- [id number] Performed by: Vanessa Ledezma, Sheet Cutting Operator ([facility]) Gross description: 01 20ML, CLOUDY WHITE, 1TP 1CB /LCS 08/27/2019 0557 Local FLAG LEGEND: L-Low Normal,H-High Normal,LL-Alert Low,HH-Alert High <-Panic Low,>-Panic High,A-Abnormal,AA-Critical Abnormal Performed at: 01 [facility] [address] [place] [address] Candido Quinn MD, [address] [address] Tiny Martinez MD, Specimen Comment: A courtesy copy of this report has been sent to [phone] Specimen Comment: Report sent to DR BENNETT Specimen Comment: A duplicate report has been generated due to demographic updates. Performed at: 01 [facility] [address] [place] [address] PATHOLOGY RPT PROCEDURE Name: ROSALINDSAULDAVI Room #: 241-P ADM IN M.R.#: [id number] Admission: 08/03/19 Date of : 61 Discharge: Report #: [id number] Path Case #: [id number] [address], [place], [place] [id number] MD Candido Quinn MD Phone: [phone]
--- NOTE | 2019-08-28 16:13 | NUR ---
KINGA reviewed chart and spoke with attending physician. Pt remains intubated. Pt to have trach and peg placed today. KINGA spoke with pt's s/o, Odessa, via phone to provide update and discuss post-acute placement, LTAC facility. Options provided and explained level of care provided at LTAC v. inpt acute rehab. Pt's s/o verbalized understanding and would like to see if [facility] is in-network with pt's insurance. KINGA faxed face sheet to [facility] and notified [facility] liaison. K[facility]A updated [facility]. KINGA is following to assist as needed with discharge planning.
--- NOTE | 2019-08-28 22:23 | NUR ---
SPOKE WITH GIRLFRIEND (RADHA ROLLE) AND GAVE AN UPDATE ON PATIENT'S DAY, TUBE FEEDING STARTED AT 2100 AT A RATE OF 10 PER HOUR.
[2019-08-29] VITALS (24 sets, daily range): BP systolic 100–129; BP diastolic 57–89
[2019-08-29 06:16] LABS: CALCIUM 8.8 mg/dL (8.5-10.1); POTASSIUM 4.9 mmol/L (3.5-5.1)
--- NOTE | 2019-08-29 06:26 | NUR ---
PATIENT ALERT TO SELF AND SITUATION, PAIN CONTROLLED WITH MEDICATION. PRN TYLENOL GIVEN FOR INCREASED TEMPERATURE. PATIENT HAS COPIOUS AMOUNTS OF ORAL AND TRACH SECRETIONS, MULTIPLE BED CHANGES COMPLETED. PATIENT TOLERATING TUBE FEEDING WITH RESIDUAL CHECK AT 0600 5ML, LARGE BOWEL MOVEMENT THIS MORNING. NO SIGNIFICANT EVENTS THROUGHOUT THE NIGHT. PATIENT ON VENTILATOR 02 SAT REMAINED ABOVE 90%. PHOTO TAKEN OF WOUND TO COCCXY AREA, PLACED AT THE FRONT OF CHART. PLAN DISCUSSED WITH PATIENT AND FAMILY. NO SIGN OF ACUTE DISRESS NOTED AT THIS TIME. WILL CONTINUE TO MONITOR.
[2019-08-29 07:35] LABS: HEMATOCRIT 27.6 % (42.0-52.0); MCH 28.2 pg (26.0-34.0); MCHC 32.8 g/dL (28.0-37.0); MCV 86.1 fL (80.0-100.0); RBC 3.2 mil/uL (4.50-6.00); RDW 14.8 % (10.5-14.5); WBC 13.3 thou/uL (4.0-11.0)
--- NOTE | 2019-08-29 11:16 | NUR ---
WOUND CONSULT; THE PATIENT IS IN ISOLATION NOT RE; COVID19. THE COCCYX WAS ASSESSED AND S/S FOUND TO BE CONSISTANT WITH AN UNSTAGEABLE PRESSURE ULCER. 100% NECROSIS COVERED MEANSURES APPROX; 3.5 X 2 X 0.1 NO DRAINAGE SEEN, NO S/S OF INFECTION OF THE PERIWOUND MARGINS. PICTURES ON CHART. RECOMMENDATIONS; 1-CONSULT DR DARREL LEÓN. 2-A SMALL SACRAL FOAM DRESSING, CHANGE M/W/F PRN RN PRESENT
--- NOTE | 2019-08-29 13:41 | NUR ---
KINGA reviewed chart and spoke with attending physician. Pt is s/p trach/peg placement. Pt remains intubated. Pt is progressing towards goals for discharge. KINGA contacted [facility] liaison, who states they are in-network with pt's insurance. KINGA spoke with pt's s/o, Odessa, via phone to provice update and discuss LTAC placement. Odessa is agreeable with referral to [facility]. KINGA faxed clinical info for review to [facility]. Requested [facility] to start working on insurance authorization process. KINGA is following to assist as needed with discharge planning.
--- NOTE | 2019-08-29 19:15 | NUR ---
Pt stable today and has dozed intermittenly. Generalized weakness. OT started doing ROM exercises with patient. Wound care MD was consulted and came by for wound on coccyx. Tolerating tube feedings. Maintained in isolation. Significant other called for status report. Report given to RN assuming care. No vent weaning today. Continue to support and work toward goals.
--- NOTE | 2019-08-29 20:43 | NUR ---
PATIENT IS ALERT, CALM, AND FOLLOWS COMMANDS. NO INTERFERENCE WITH MEDICAL CARE, RESTRAINTS REMOVED ON 08/29/19 AT 2015.
[2019-08-30] VITALS (33 sets, daily range): BP systolic 108–147; BP diastolic 63–92
[2019-08-30 05:22] LABS: HEMATOCRIT 24.6 % (42.0-52.0); HEMOGLOBIN 8.3 gm/dL (14.0-18.0); MCHC 33.6 g/dL (28.0-37.0); MCV 86.2 fL (80.0-100.0); RBC 2.85 mil/uL (4.50-6.00); RDW 14.9 % (10.5-14.5); WBC 10.1 thou/uL (4.0-11.0)
[2019-08-30 05:46] LABS: CALCIUM 8.7 mg/dL (8.5-10.1); POTASSIUM 4.7 mmol/L (3.5-5.1)
--- NOTE | 2019-08-30 05:49 | NUR ---
ASSUMED CARE OF PATIENT AT 1900, PATIENT IS ALERT AND FOLLOWS COMMANDS. SINUS RHYTHM WITH BBB ON MANAGER CREATIVE. PATIENT ON VENTILATOR 40% FIO2, O2 SAT REMAINED ABOVE 90%, PATIENT REQUIRED LESS FREQUENT SUCTIONING FROM PREVIOUS NIGHT, ORAL SECRETIONS DECREASING. TOLERATING TUBE FEEDING AT GOAL RATE OF 50ML/HR, ALSO 200 WATER FLUSH Q4H WITH PROTEIN POWDER. PATIENT PROGRESSING TOWARDS GOALS, NO SIGN OF ACUTE DISTRESS NOTED AT THIS TIME, WILL CONTINUE TO MONITOR.
--- NOTE | 2019-08-30 12:21 | NUR ---
RN spoke with significant other, Tanya, and updated her of plan of care at 1220. She verbalized understanding. Will continue to monitor.
[2019-08-30] MEDS ORDERED: PACERONE 200 M200 M1 PER TUBE (14:03)
--- NOTE | 2019-08-30 14:26 | NUR ---
DISCHARGE NOTE: KINGA reviewed chart and spoke with nursing and attending physician. Pt is medically stable for discharge to [facility] today. KINGA discussed with [facility] liaison, who states they were unable to obtain auth, due to the policy number being incorrect and not being able to verify without pt's social security number. KINGA contacted MEREDITH Foley at [facility], who states she is unable to provide pt's SS#. Once the info is obtained, authorization for LTAC will be provided and ensure that [facility] will be able to bill for pt's hospitalization. KINGA contacted pt's dialysis clinic-[facility] and spoke with Irish. Pt's SS# provided. [facility] escrow secretary to look for pt's insurance info when she arrived to the office. KINGA placed call to pt's s/o, Odessa, who states she gets off work at 1100 and will call SW with insurance info, as pt's insurance card is at home. [facility] was able to obtain correct policy number. [facility] also faxed info on pt's BC policy. KINGA provided info to registration to update pt's face sheet. KINGA sent updated face sheet to [facility] and [facility] Jayne HARPER. Authorization provided for LTAC. [facility] pt today. Request transportation for 1800. KINGA arranged ambulance transportation through [facility] for 1800. KINGA notified pt's s/o of transportation time. Odessa is agreeable with discharge plan. 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 Odessa has receipt of items that were placed in security when pt was admitted. KINGA notified security of Odessa picking up the belongings. [facility] liaison to contact Odessa to provide info on the LTAC and contact numbers. Discharge orders/summary faxed to [facility] and confirmed they were received. Number for report provided to pt's nurse. Chart copy requested. No additional KINGA needs identified at this time, but is available to assist should needs arise.
--- NOTE | 2019-08-30 14:34 | NUR ---
RN spoke with rehabilitation case coordinator in regards to PT. RN was informed that PT will d/c to [facility] facility today and ambulance transport has been arranged for 1800. SW also stated they spoke with PT's girlfriend and updated her of PT's upcoming discharge. RN noted that Dr. Stein placed d/c orders. RN attempted to call report to [facility] at 1404. Currently waiting for a call back. PT was notified by RN of pending discharge and he appears agreeable. RN will continue to monitor.
[2019-08-30] MEDS ORDERED: MERREM500 MG IV (15:18)
[2019-08-30] MEDS ORDERED: MINOCIN100 M1 IV (15:18)
[2019-08-30] MEDS ORDERED: LEVAQUIN 7750 MG/152 IV (15:18)
--- NOTE | 2019-08-30 15:41 | NUR ---
Report was called to Lisa RENDON with [facility] at 1525. Brown from case management at [facility] called RN to clarify information at 1520. RN spoke with PT's significant other who stated that she was already aware the PT was leaving but would only be able to excelsior picker the belongings from security tomorrow on 08/31/19. RN verbalized understanding and notified security that she would be coming by tomorrow to excelsior picker PT's belongings. RN also verified with the PT that it would be okay for her to pick those up and he shook his head yes. RN will continue to monitor.
--- NOTE | 2019-09-03 10:28 | HC ---
[facility] [place] [address] CONSULTATION Name: DAIV MCCLURE Room #: 241-P [facility] IN M.R.#: [id number] Admission: 08/03/19 Attend Phys: Kemal Stein MD Discharge: 08/30/19 Date of : 61 Report #: [id number] THIS REPORT FOR: cc: SIMRAN - Family physician unknown SIMRAN - Family physician unknown Manuel Crowell MD ~ CC: Montrell KHALIL unknown DATE OF SERVICE: 08/22/2019 HISTORY OF PRESENT ILLNESS: The patient is a 54-year-old -[place]apore[place] male who was originally admitted to [facility] on 08/03/2019 with severe hypoxia. He apparently flagged down in the ambulance himself. He was intubated, noted to have acute hypoxic respiratory failure. He is a dialysis patient and had been on hemodialysis, but apparently had been more recently switched to peritoneal dialysis. The patient was noted to have pulmonary edema upon admission with significantly elevated blood pressure. He continued in the ICU with a prolonged course of mechanical ventilation, totalling 16 days per my review. He did undergo fiberoptic bronchoscopy, 08/20/2019 with suctioning of secretions. Course was complicated by sepsis, tracheitis, PSVT, V-tach and toxic metabolic encephalopathy. He has since been extubated, is now on 3 liters. His encephalopathy appears to be gradually improving. We are seeing him now in rehabilitation medicine consultation. PAST MEDICAL HISTORY: Includes end-stage renal disease, on hemodialysis with recent tire changer aircraft to peritoneal dialysis, history of hypertension. MEDICATIONS: Please see the full medication listing. ALLERGIES: No known drug allergies. SOCIAL HISTORY: Lives in a house, one floor with a significant other. He notes that she works, but that he is retired. He did not utilize gait aids premorbidly. Apparently had oxygen at home available, but did not utilize oxygen on a regular basis. There is note or reference to a daughter being involved as well. REVIEW OF SYSTEMS: He did not offer any current complaints of chest pain, shortness of breath, abdominal discomfort. Complains of being overall significantly weak. PHYSICAL EXAMINATION: GENERAL: He is a 54-year-old -Singaporean male, in no obvious distress. VITAL SIGNS: Last recorded temperature 34.9, pulse 100, respirations 18, blood [facility] [address] [address] CONSULTATION Name: DAVI MCCLURE Room #: [facility]-P [facility] IN M.R.#: [id number] Admission: 08/03/19 Attend Phys: Kemal Stein MD Discharge: 08/30/19 Date of : 61 Report #: [id number] pressure is 126/75. The patient is on 3 liters nasal cannula. He continues in the ICU. He is very soft spoken. Sleepy, but easily arouses. He will follow basic 1 step commands. There is a latency to his responses. HEENT: Facies appeared to be symmetric. EXTREMITIES: He has considerable weakness of both upper and lower extremities, I would grade his strength at 3/5. There is no focal calf swelling. NEUROLOGIC: Sensation appeared reasonably intact to proprioception, bilateral large toes. He is needing max assist with basic supine to sit and he has not been able to get up at the edge of bed as of yet. Speech therapy has him on a pureed diet with honey thickened liquids. ASSESSMENT: A 54-year-old -Singaporean male with the following problem list: 1. Toxic metabolic encephalopathy with some improvement. 2. Clinical evidence for critical illness myopathy. 3. Sepsis with prolonged mechanical ventilation and ICU stay. 4. Acute hypoxic respiratory failure, now on nasal cannula O2. 5. Pulmonary edema. 6. Hypertension. 7. Paroxysmal supraventricular tachycardia. 8. Tracheitis. 9. Supraventricular tachycardia. 10. Ventricular tachycardia. 11. End-stage renal disease, switched over recently to peritoneal dialysis prior to admission. 12. Dysphagia, on pureed honey thickened liquid diet. PLAN: The patient is at a lower level functionally. He was at quite a high level; however, living in the community, premorbidly. He appears motivated to further improve functionally. Would anticipate he should be a good acute in-hospital inpatient rehabilitation candidate as he further medically stabilizes and as his endurance gradually improves. We will be glad to follow along with you regarding his rehab therapy needs. <ELECTRONICALLY SIGNED> By: Manuel Crowell MD 09/03/19 1028 1417 56 Manuel Crowell MD /[facility]
--- NOTE | 2019-09-11 08:07 | HC ---
[facility] [place] [address] CONSULTATION Name: DAVI MCCLURE Room #: 241-P [facility] IN M.R.#: [id number] Admission: 08/03/19 Attend Phys: Kemal Stein MD Discharge: 08/30/19 Date of : 61 Report #: [id number] THIS REPORT FOR: cc: SIMRAN - Family physician unknown SIMRAN - Family physician unknown Constantin Mckee MD ~ CC: Montrell KHALIL unknown DATE OF SERVICE: 08/29/2019 WOUND CARE CONSULTATION FAMILY PHYSICIAN: None on staff. CHIEF COMPLAINT: Sacrococcygeal decubitus ulcer. HISTORY OF PRESENT ILLNESS: This is a 54-year-old black male who has been hospitalized now for approximately 3 weeks secondary to acute respiratory failure. The patient has a history of end-stage renal disease, had been on hemodialysis, but then most recently has been switched over to peritoneal dialysis prior to the acute exacerbation of respiratory failure. The patient is now status post tracheostomy placement. It was noted last evening that the patient had a decubitus ulcer developing in his sacrococcygeal region. The patient of note has been hospitalized once again for the past approximately 3 weeks with respiratory failure, on a ventilator. The patient himself was unable to give any history at this time because he is on the ventilator and sedated. Nursing staff states that the patient has no other associated wounds that they were appreciated. The patient did have a tracheostomy done just yesterday. PAST MEDICAL HISTORY: Significant for end-stage renal disease, previously on hemodialysis, now on peritoneal dialysis; history of hypertension. CURRENT MEDICATIONS: Multiple. I reviewed the patient's medication list. DRUG ALLERGIES: The patient has no known allergies. SOCIAL HISTORY: Unknown. FAMILY HISTORY, REVIEW OF SYSTEMS: Unobtainable because the patient is intubated and sedated on the ventilator. PHYSICAL EXAMINATION: VITAL SIGNS: The patient is afebrile, pulse is 88, respirations 18, BP 127/91. GENERAL: This is a chronically ill-appearing black male who is on the [facility] [email or web address] [address] CONSULTATION Name: DAVI MCCLURE Room #: 241-P [facility] IN M.R.#: [id number] Admission: 08/03/19 Attend Phys: Kemal Stein MD Discharge: 08/30/19 Date of : 61 Report #: [id number] ventilator and intubated. HEENT: Normocephalic, atraumatic. Mucous membranes are dry. Pupils are round. Sclerae white. NECK: Tracheostomy is in place and functioning without excoriation. LUNGS: Slight diminished breath sounds heard throughout. Occasional scattered wheeze. HEART: Regular. ABDOMEN: Soft, nontender. PEG tube in place. EXTREMITIES: The patient has spontaneous movement of all extremities. Bilateral heels are intact. Distal pulses are intact. NEUROLOGIC: Cranial nerves 2-12 grossly intact. Motor and sensory grossly intact. SKIN: Evaluation of sacrococcygeal region reveals an unstageable decubitus ulcer, which has a dense thickened eschar. Periwound is otherwise intact. There are no signs of any open ulcerations at this time. Minimal amount of serosanguineous drainage without odor. LABORATORY VALUES: White count 13.3, hemoglobin 9.0, albumin is 1.8. IMPRESSION: 1. Unstageable sacrococcygeal decubitus ulcer. 2. Respiratory failure, now status post tracheostomy. 3. End-stage renal disease. 4. Hypertension. 5. Generalized debility. 6. Severe protein-calorie malnutrition, albumin 1.8. PLAN: We will start the patient on Silvadene, Xeroform and a sacral foam to the ulceration, change daily and p.r.n. We will have the patient placed on low air loss surface having turned every 2 hours. Respiratory management will be continued per the pulmonary physicians. Nephrology is managing his end-stage renal disease. PT and OT will be utilized for strengthening as able. We will utilize the PEG tube for maximizing the patient's protein supplementation to assist in healing. Continue all other current medicines and we will continue to follow the patient. I appreciate the ability to consult. <ELECTRONICALLY SIGNED> By: Constantin Mckee MD 09/11/19 0807 1248 1445 Constantin Mckee MD /nt
== END 2019-08-30 18:39 | DRG 4 ==
LOC: ER 13:18 → ICU 15:03 → EROBS 15:03 → ICU 16:20 → 4W 08-23 03:13 → ICU 08-24 19:18
PROVIDERS: Emergency Medicine; Hospitalist; Internal Medicine; Internal Medicine Cardiovascular Disease; Internal Medicine Nephrology; Internal Medicine Pulmonary Disease; Nurse Practitioner; Nurse Practitioner Family; Pediatrics; Specialist; Surgery; ADMIT Hospitalist; ATTEND Hospitalist
PROC: 5A1D70Z Performance of Urinary Filtration, Intermittent, Less than 6 Hours Per Day (ICD-10-PCS; principal; 2019-08-03)
PROC: 03HY32Z Insertion of Monitoring Device into Upper Artery, Percutaneous Approach (ICD-10-PCS; principal; 2019-08-03)
PROC: 0BH17EZ Insertion of Endotracheal Airway into Trachea, Via Natural or Artificial Opening (ICD-10-PCS; principal; 2019-08-03)
PROC: 5A1955Z Respiratory Ventilation, Greater than 96 Consecutive Hours (ICD-10-PCS; principal; 2019-08-03)
PROC: 02HV33Z Insertion of Infusion Device into Superior Vena Cava, Percutaneous Approach (ICD-10-PCS; principal; 2019-08-03)
PROC: 5A1D70Z Performance of Urinary Filtration, Intermittent, Less than 6 Hours Per Day (ICD-10-PCS; 2019-08-06)
PROC: 5A1D70Z Performance of Urinary Filtration, Intermittent, Less than 6 Hours Per Day (ICD-10-PCS; 2019-08-07)
PROC: 5A1D70Z Performance of Urinary Filtration, Intermittent, Less than 6 Hours Per Day (ICD-10-PCS; 2019-08-09)
PROC: 5A1D70Z Performance of Urinary Filtration, Intermittent, Less than 6 Hours Per Day (ICD-10-PCS; 2019-08-10)
PROC: 5A1D70Z Performance of Urinary Filtration, Intermittent, Less than 6 Hours Per Day (ICD-10-PCS; 2019-08-12)
PROC: B211YZZ Fluoroscopy of Multiple Coronary Arteries using Other Contrast (ICD-10-PCS; 2019-08-15)
PROC: 4A023N7 Measurement of Cardiac Sampling and Pressure, Left Heart, Percutaneous Approach (ICD-10-PCS; 2019-08-15)
PROC: 5A1D70Z Performance of Urinary Filtration, Intermittent, Less than 6 Hours Per Day (ICD-10-PCS; 2019-08-16)
PROC: 0B9D8ZX Drainage of Right Middle Lung Lobe, Via Natural or Artificial Opening Endoscopic, Diagnostic (ICD-10-PCS; 2019-08-20)
PROC: 02H633Z Insertion of Infusion Device into Right Atrium, Percutaneous Approach (ICD-10-PCS; 2019-08-24)
PROC: 0B9J8ZX Drainage of Left Lower Lung Lobe, Via Natural or Artificial Opening Endoscopic, Diagnostic (ICD-10-PCS; 2019-08-25)
PROC: 0WPGX3Z Removal of Infusion Device from Peritoneal Cavity, External Approach (ICD-10-PCS; 2019-08-27)
PROC: 0B110F4 Bypass Trachea to Cutaneous with Tracheostomy Device, Open Approach (ICD-10-PCS; 2019-08-28)
PROC: 0DH68UZ Insertion of Feeding Device into Stomach, Via Natural or Artificial Opening Endoscopic (ICD-10-PCS; 2019-08-28)
PROC: 5A1D70Z Performance of Urinary Filtration, Intermittent, Less than 6 Hours Per Day (ICD-10-PCS; 2019-08-28)
PROC: 30233N1 Transfusion of Nonautologous Red Blood Cells into Peripheral Vein, Percutaneous Approach (ICD-10-PCS; 2019-08-28)
PROC: 5A1D70Z Performance of Urinary Filtration, Intermittent, Less than 6 Hours Per Day (ICD-10-PCS; 2019-08-30)
DX: A41.9 Sepsis, unspecified organism (principal); J96.01 Acute respiratory failure with hypoxia; N18.6 End stage renal disease; G92 Toxic encephalopathy; E43 Unspecified severe protein-calorie malnutrition; J69.0 Pneumonitis due to inhalation of food and vomit; I47.1 Supraventricular tachycardia; G72.81 Critical illness myopathy; I16.9 Hypertensive crisis, unspecified; N17.9 Acute kidney failure, unspecified; I13.2 Hypertensive heart and chronic kidney disease with heart failure and with stage 5 chronic kidney disease, or end stage renal disease; I50.9 Heart failure, unspecified; Z91.19 Patient's noncompliance with other medical treatment and regimen; E87.70 Fluid overload, unspecified; J04.10 Acute tracheitis without obstruction; R13.10 Dysphagia, unspecified; L89.150 Pressure ulcer of sacral region, unstageable; D69.6 Thrombocytopenia, unspecified; E78.5 Hyperlipidemia, unspecified; I95.9 Hypotension, unspecified; D63.8 Anemia in other chronic diseases classified elsewhere; Z20.828 Contact with and (suspected) exposure to other viral communicable diseases
CPT/HCPCS: 10045; 10078; 32100; 50101; 50386; 50403; 50517; 56525; 56527; 62110; 62900

== ENCOUNTER → 2019-12-25 | Outpatient (CLI) | payer BC ==
[~2019-12-25] MED LIST: BUPROPION XL300 MG PO; CLONIDINE HCL0.2 M2 PO; LASIX 40 MG TAB40 MG PO; LEVAQUIN 7750 MG/152 IV; MERREM500 MG IV; MINOCIN100 M1 IV; NORVASC10 MG PO; PACERONE 200 M200 M1 PER TUBE; PROAIR HFA8.5 GM INH; RENAL-VITE TAB0.8 MG PO; RENVELA800 MG PO; ROCALTROL0.25 MCG PO; TOPROL XL50 MG PO; TRAZODONE HCL100 MG PO
== END ==
LOC: SJCVCIMAG 12:01
PROVIDERS: ATTEND Internal Medicine Cardiovascular Disease
DX: I08.8 Other rheumatic multiple valve diseases (principal); I25.10 Atherosclerotic heart disease of native coronary artery without angina pectoris; R53.83 Other fatigue

== ENCOUNTER → 2019-12-31 | Outpatient (CLI) | payer BC ==
[~2019-12-31] VITALS: Ht 175.3 cm; Wt 102.1 kg
[~2019-12-31] MED LIST changes: +ASA81BEC PO; +LIVALO4 MG PO
[2019-12-31 07:18] LABS: HEMATOCRIT 36.6 % (42.0-52.0); HEMOGLOBIN 11.8 gm/dL (14.0-18.0); MCH 26.9 pg (26.0-34.0); MCHC 32.3 g/dL (28.0-37.0); MCV 83.3 fL (80.0-100.0); RBC 4.39 mil/uL (4.50-6.00); RDW 16.6 % (10.5-14.5); WBC 2.8 thou/uL (4.0-11.0)
[2019-12-31 07:34] LABS: CALCIUM 9.6 mg/dL (8.5-10.1); CREATININE 5.3 mg/dL (0.7-1.3); POTASSIUM 4.5 mmol/L (3.5-5.1)
--- NOTE | 2019-12-31 07:36 | EKG ---
[facility] [place] [address] ELECTROCARDIOGRAM REPORT Name: DAVI MCCLURE [id number] Admission: 12/31/19 Attend Phys: Neel Carmen MD, Discharge: Date of : 61 Report #: [id number] THIS REPORT FOR: cc: To Nick MD, Christopher B. MD Santiago, Patrick MD [facility] ~ THIS REPORT FOR: //name// [facility] Test Date: 2019-12-31 Test Time: 07:18:38 Pat Name: DAVI MCCLURE Department: Room: Gender: M Medical Superintendent: SBASIF : 1965 Requested By: Neel Carmen Order Number: [id number] MD: Kwame Del Cid Measurements Intervals [place] Rate: 59 P: -1 MD: 232 QRS: -65 QRSD: 156 T: -61 QT: 499 QTc: 495 Interpretive Statements Sinus rhythm Multiple ventricular premature complexes Prolonged MD interval Right bundle branch block Inferior infarct, age indeterminate Compared to ECG 08/24/2019 15:49:53 Ventricular premature complex(es) now present First degree AV block now present Sinus tachycardia no longer present Myocardial infarct finding still present Electronically Signed On 12-31-2019 7:36:01 CDT by Kwame Del Cid [email or web address] <ELECTRONICALLY SIGNED> By: Kwame Del Cid MD, [facility] 12/31/19735 7 7 Kwame Del Cid MD, [facility] /EPI
--- NOTE | 2020-01-01 12:13 | CATHLAB ---
[facility] [place] [address] INVASIVE PROCEDURE REPORT Name: DAVI MCCLURE Room #: REG DANIKA Khan#: [id number] Admission: 12/31/19 Attend Phys: Neel Carmen MD, Discharge: Date of : 61 Report #: [id number] THIS REPORT FOR: cc: To Nick MD, Christopher B. MD Mancuso, Gerald M. MD [facility] ~ APPROVED REPORT Study performed: 12/31/2019 07:27:11 Patient Details Patient Status: Out-Patient Room #: The patient is a 54 year-old male Event Personnel Neel Carmen Airplane First Officer, Kacy Avery RTR Monitor, Riri Roberto Monitor, Rubin Soto RTR Yash Marte Dexter RN remote operations producer Performed Tez Access - R femoral vein Art Access - R femoral artery* Right and Left Heart Cath w/or w/o Coronarie [id number] [facility] 44508 Initial Mod Sed Same Phys/QHP Gr5y 168730 58055 Mod Sed Same Phys/QHP Ea [id number] Hemostasis w/ Mynx Aortogram Abdominal Peripheral Angio 997809 Indication Heart failure Procedure Narrative The Right Groin^ was infiltrated with 1% Lidocaine subcutaneous anesthesia. A Right Heart Catheterization was performed with a 7 Fr. [place]-Eliezer catheter and pressure were recorded. Cardiac outputs were obtained by the Thermal Dilution method. A PINNACLE 6FR Sheath #[id number] sheath was inserted into the RFA^. Coronary angiography was performed using coronary diagnostic catheters. The right coronary system was accessed and visualized with a JR4 catheter. The left coronary system was accessed and visualized with a JL4 catheter. The left ventricle was accessed and visualized with a PIGTAIL catheter. Left ventriculogram was performed in 30 degree projection. An aortogram of the abdominal aorta was performed. Closure device was deployed with a Fr MYNXGRIP 6/7F #[id number]. The patient tolerated the procedure well and there were no complications associated with the procedure. There was no hematoma. [facility] [address] [place] [address] INVASIVE PROCEDURE REPORT Name: DAVI MCCLURE Room #: [facility] Bill#: [id number] Admission: 12/31/19 Attend Phys: Neel Carmen, Discharge: Date of : 61 Report #: [id number] Intraoperative Conscious Sedation Sedation start time: 8:56 Case end Time: 9:38 Fentanyl 50 mcg Versed 1 mg Fluoro Time: 2.80 minutes Dose: DAP 8982.00 cGycm2 989 mGy Contrast Type and Amount: Visipaque 95 ml Hemodynamics The right atrial mean pressure is 20 mmHg. The right ventricular pressure is 95/5 mmHg. The pulmonary artery pressure is 90/37 mmHg with a mean of 56 mmHg. The mean pulmonary capillary wedge pressure is 49 mmHg. The aortic pressure is 146/94 mmHg with a mean of mmHg. The left ventricular pressure is 185/1 mmHg with a mean of mmHg. The left ventricular end diastolic pressure is 33 mmHg. The cardiac output using thermo method is 5.55 L/min. The cardiac index using thermo method is 2.56 L/min/m2. Conclusion #1. Successful right heart catheterization with cardiac output by thermodilution. Severe elevation of pulmonary and pulmonary capillary wedge pressure. See above hemodynamics. #2 moderate left ventricular dilatation with mildly severe global hypokinesis ejection fraction 35% range. #3 abdominal aorta shows mild aortic ectasia but no aneurysm. #4 essentially normal coronary anatomy with minimal plaquing in a right dominant system. No occlusive disease. Recommendations and plan: Continue aggressive risk factor modification. Afterload reducers as tolerated by blood pressure. Will discuss with nephrology and dialysis about fluid management. Significantly volume overloaded. <ELECTRONICALLY SIGNED> By: Neel Carmen MD, FACC 01/01/201211 11 11 Neel Carmen MD, FACC /INF
== END | disposition home or self-care (01) ==
LOC: CATH 06:24
PROVIDERS: ATTEND Internal Medicine Cardiovascular Disease
DX: I25.10 Atherosclerotic heart disease of native coronary artery without angina pectoris (principal); I77.811 Abdominal aortic ectasia; I12.9 Hypertensive chronic kidney disease with stage 1 through stage 4 chronic kidney disease, or unspecified chronic kidney disease; N18.5 Chronic kidney disease, stage 5; I48.91 Unspecified atrial fibrillation; Z98.890 Other specified postprocedural states; Z79.82 Long term (current) use of aspirin; Z79.899 Other long term (current) drug therapy; Z79.01 Long term (current) use of anticoagulants

== ENCOUNTER → 2020-06-30 | Outpatient (CLI) | payer BC | LOC: SJCVCIMAG 09:25 | PROVIDERS: ATTEND Internal Medicine Cardiovascular Disease | DX: I08.3 Combined rheumatic disorders of mitral, aortic and tricuspid valves (principal); I11.9 Hypertensive heart disease without heart failure; E78.5 Hyperlipidemia, unspecified; R06.00 Dyspnea, unspecified; I25.5 Ischemic cardiomyopathy ==